=== PATIENT | female | born 1970 | race Caucasian/White ===

== ENCOUNTER 2018-04-04 21:19 | Emergency (ER) | payer OTHER ==
[~2018-04-04] VITALS: Ht 175.3 cm; Wt 65.8 kg
[~2018-04-04 21:19] MED LIST: BENTYL10 MG PO; BUDESONIDE EC3 MG PO; CARAFATE1 GM PO; CEPHALEXIN500 MG PO; COUMADIN5 MG PO; CYMBALTA20 MG PO; CYMBALTA30 MG PO; DICYCLOMINE HCL20 MG PO; ELIQUIS PO; FENTANYL1 EAC1 TD; FLOMAX0.4 MG PO; GABAPENTIN100 MG PO; GABAPENTIN400 MG PO; HUMALOG100 UNIT/1 SC; HUMALOG100 UNIT/3 SC; HUMALOG100 UNITS/ SC; HUMULIN R100 UNIT/2; HYDROXYZINE HCL25 MG PO; IMODIUM2 MG PO; LANTUS100 UNITS/ SC; LEVEMIR100 UNIT/1 SC; LEVEMIR100 UNIT/1 SQ; LEXAPRO10 MG PO; LYRICA50 MG PO; Linzess PO; Loratadine PO; MELOXICAM7.5 MG PO; METOCLOPRAMIDE10 MG PO; NATURAL FIBER283 G1 PO; NEXIUM40 MG PO; NORCO 7.5-3251 EACH PO; NOVOLOG100 UNIT/1 SQ; PANTOPRAZOLE SO20 MG PO; PANTOPRAZOLE SO40 MG PO; PENTASA500 MG PO; PEPCID20 MG PO; PHENERGAN25 MG/1 ML IV; PROMETHAZINE HC25 M1 PO; PROTONIX40 MG PO; RANITIDINE HCL300 M1 PO; REGLAN10 MG PO; REGLAN5 MG PO; REXULTI PO; SERTRALINE HCL50 MG PO; SUCRALFATE1 GM PO; TRAZODONE HCL50 MG PO; TUMS300 MG PO; ULTRAM 50MG50 MG PO; WELCHOL625 MG PO; XIFAXAN550 MG PO; ZOFRAN ODT4 MG PO; ZOFRAN8 MG PO
--- OUTSIDE RECORDS SUMMARY | 2018-04-04 21:22 | XMS REPORT ---
Author Author [facility] Address Unknown Phone Unavailable Care Team Providers Care Radio News Writer Name Role Phone MEL WRIGHT Unavailable Unavailable Problems This patient has no known problems. Allergies, Adverse Reactions, Alerts This patient has no known allergies or adverse reactions. Medications This patient has no known medications. Results Test Description Test Time Test Comments Text Results Atomic Results Result Comments CHEST SINGLE (PORTABLE) [place] [address] Patient Name: SERG MOYER MR #: [id number] : 1970 Age/Sex: 47/F Req #: [id number] [facility] Physician: MEL WRIGHT MD Ordered by: FRANDY PAK MD Report #: [id number] Location: [facility] Room/Bed: [place] [address] Procedure: [id number] DX/CHEST SINGLE (PORTABLE) Exam Date: 06/27/17 Exam Time: 0950 REPORT STATUS: Signed PROCEDURE: CHEST SINGLE (PORTABLE) COMPARISON: None. INDICATIONS: VOMITING, ABDOMEN PAIN FINDINGS: LUNGS: No consolidations or edema. PLEURA: No effusions or pneumothorax. HEART T MEDIASTINUM: The heart is within normal size-limits. BONES T SOFT TISSUES: No acute findings. CONCLUSION: No acute thoracic abnormality. Mani Oh D.O. Dictated by: Mani Oh D.O. on 06/27/2017 at 10:28 Electronically approved by: Mani Oh D.O. on 06/27/2017 at 10:28 Dictated By: MANI OH DO 1028 Transcribed By: PAPA on 06/27/17 1028 COPY TO: FRANDY PAK MD
--- OUTSIDE RECORDS SUMMARY | 2018-04-04 21:22 | XMS REPORT | Clinical Summary ---
Author Author [facility] Address Unknown Phone Unavailable Care Team Providers Care Wire Steward Name Role Phone KeysAshvin Mary PCP Allergies Active Allergy Reactions Severity Noted Date Comments Penicillins Rash Low 03/30/2016 Unknown reaction. Note: Patient was young and does not remember. Transcribed during cutover. Current Medications Prescription Sig. Disp. Refills Start End Date Status Date rivaroxaban (XARELTO) Take 20 mg by mouth every Active tablet evening. Active Problems Problem Noted Date Depression 05/03/2016 Nausea and vomiting 05/03/2016 Type 1 diabetes mellitus 05/03/2016 Diabetic ketoacidosis without coma associated with type 1 diabetes mellitus 03/31/2016 DVT (deep venous thrombosis) 03/31/2016 Celiac disease 03/31/2016 Hypomagnesemia 03/31/2016 Encounters Date Type Specialty Care Team Description 09/17/2017 Office Visit General Surgery Nicko Pagan MD Gastroparesis diabeticorum (Primary Dx) after 04/03/2017 Family History Medical History Relation Name Comments Diabetes Maternal DM Type I Grandfather Thyroid disease Mother Alive GI problems Neg Hx Liver disease Neg Hx Relation Name Status Comments Maternal Grandfather Mother Social History Tobacco Use Types Packs/Day Years Used Date Former Smoker 1 30 Comments: 1 pack per week for ~ 30 years Alcohol Use Drinks/Week oz/Week Comments No Sex Assigned at Date Recorded Not on file Last Filed Vital Signs Vital Sign Reading Time Taken Blood Pressure 107/70 09/17/2017 1:41 PM [employer]ACHINE Pulse 106 09/17/2017 1:41 PM [employer] Temperature 36.1 C (96.9 F) 09/17/2017 1:41 PM [employer] Respiratory Rate 18 09/17/2017 1:41 PM [employer] Oxygen Saturation 100% 09/17/2017 1:41 PM [employer] Inhaled Oxygen - - Concentration Weight 65.6 kg (144 lb 9.6 oz) 09/17/2017 1:41 PM [employer] Height 175.3 cm (5' 9") 09/17/2017 1:41 PM [employer] Body Mass Index 21.35 09/17/2017 1:41 PM [employer] Plan of Treatment Health Maintenance Due Date Last Done Comments DIABETIC FOOT EXAM 1981 DIABETIC RETINAL EYE EXAM 1981 URINE MICROALBUMIN 1981 CERVICAL CANCER SCREENING 02/14/1992 INFLUENZA VACCINE 06/10/2018 Results Not on fileafter 04/03/2017 Insurance Payer Benefit Subscriber ID Type Phone Address Plan / Group [employer] xxxxxxxxxxx HMO HMO/POS
[2018-04-04] MEDS ORDERED: INSULIN REGULAR, HUMAN 100 UNIT/1 ML 3ML VIAL SQ ONE (21:45)
[2018-04-04] MEDS ORDERED: INSULIN REGULAR, HUMAN 100 UNIT/1 ML 3ML VIAL IV ONE (21:45)
[2018-04-04] MEDS ORDERED: SODIUM CHLORIDE 0.9% 1000ML 1,000 ML IV ONE ×2 (21:45→22:30)
[2018-04-04] MEDS ORDERED: ONDANSETRON HCL 4 MG ORAL DISINTEGRATING TAB PO PRN (21:45)
[2018-04-04 21:50] LABS: BASOPHILS % 0.4 % (0.0-1.0); EOSINOPHILS # (AUTO) 0.3 (0.0-0.4); EOSINOPHILS % 3.7 % (0.0-6.0); HEMATOCRIT 39.4 % (34.2-44.1); LYMPHOCYTES # (AUTO) 1.9 (1.0-3.2); LYMPHOCYTES % 20.7 % (18.0-39.1); MEAN CORPUSCULAR HEMOGLOBIN 28.1 pg (28-32); MEAN CORPUSCULAR VOLUME 85.1 fL (81-99); MONOCYTES # (AUTO) 0.9 (0.2-0.8); MONOCYTES % 9.5 % (4.4-11.3); NEUTROPHILS % 65.5 % (38.7-80.0); PLATELET COUNT 223 x10e3/uL (140-360); RED BLOOD COUNT 4.63 x10e6/uL (3.6-5.1); RED CELL DISTRIBUTION WIDTH 14.3 % (11.7-14.4)
[2018-04-04 21:53] LABS: BILIRUBIN,URINE NEGATIVE (NEGATIVE); CLARITY,URINE CLEAR (CLEAR); COLOR,URINE STRAW (YELLOW); KETONES,URINE NEGATIVE (NEGATIVE); LEUKOCYTE ESTERASE ,URINE NEGATIVE (NEGATIVE); NITRITE,URINE NEGATIVE (NEGATIVE); PROTEIN,URINE DIPSTICK NEGATIVE (NEGATIVE); URINE UROBILINOGEN 0.2 mg/dL (0.2 - 1)
[2018-04-04 21:54] LABS: PREGNANCY TEST, URINE NEGATIVE (NEGATIVE)
[2018-04-04 22:04] LABS: BACTERIA,URINE MANY /HPF; EPITHELIAL CELLS,URINE MODERATE /LPF; WBC,URINE (MAN) 0-5 /HPF (0-5); YEAST,URINE FEW
[2018-04-04 22:14] LABS: ALBUMIN 3.7 g/dL (3.5-5.0); ALBUMIN/GLOBULIN RATIO 1.1 (0.8-2.0); ANION GAP 16.6 mmol/L (8-16); CALCIUM 8.5 mg/dL (8.4-10.2); CREATININE, SERUM 1.16 mg/dL (0.57-1.11); POTASSIUM 4.6 mmol/L (3.5-5.1)
[2018-04-05] MEDS ORDERED: DEXTROSE 50% SYRINGE 50 ML IV STA (00:17)
[2018-04-05] MEDS ORDERED: DEXTROSE 50% SYRINGE 50 ML IV ONE (00:18)
[2018-04-05 00:21] LABS: ANION GAP 13.4 mmol/L (8-16); BLOOD UREA NITROGEN 16 mg/dL (7-26); BUN/CREATININE RATIO 22 (6-25); CALCIUM 7.7 mg/dL (8.4-10.2); CARBON DIOXIDE 18 mmol/L (22-29); CHLORIDE 109 mmol/L (98-107); CREATININE, SERUM 0.72 mg/dL (0.57-1.11); EST GLOMERULAR FILTRATION RATE > 60 ML/MIN (60-); GLUCOSE 118 mg/dL (74-118)
[2018-04-05 00:24] LABS: POTASSIUM 3.4 mmol/L (3.5-5.1); SODIUM 137 mmol/L (136-145)
[2018-04-05] MEDS ORDERED: POTASSIUM CHLORIDE 20 MEQ TAB CR PO STA (00:31)
[2018-04-05 02:40] VITALS: BP 101/68
== END 2018-04-05 02:45 | disposition home or self-care (01) ==
LOC: ER 21:19
DX: E11.65 Type 2 diabetes mellitus with hyperglycemia (principal); K90.0 Celiac disease
CPT/HCPCS: 99283; J7030; J7799

== ENCOUNTER 2018-06-25 18:11 | Emergency (ER) | payer OTHER ==
[~2018-06-25] VITALS: Ht 175.3 cm; Wt 65.8 kg
[2018-06-25] MEDS ORDERED: INSULIN REGULAR, HUMAN 100 UNIT/1 ML 3ML VIAL ONE (19:23)
[2018-06-25] MEDS ORDERED: INSULIN REGULAR, HUMAN 100 UNIT/1 ML 3ML VIAL SQ ONE (19:30)
[2018-06-25] MEDS ORDERED: SODIUM CHLORIDE 0.9% 1000ML 1,000 ML IV ONE (19:30)
[2018-06-25 20:36] LABS: CLARITY,URINE CLEAR (CLEAR); COLOR,URINE STRAW (YELLOW); LEUKOCYTE ESTERASE ,URINE NEGATIVE (NEGATIVE); NITRITE,URINE NEGATIVE (NEGATIVE); PROTEIN,URINE DIPSTICK NEGATIVE (NEGATIVE)
[2018-06-25 20:37] LABS: BILIRUBIN,URINE NEGATIVE (NEGATIVE); KETONES,URINE NEGATIVE (NEGATIVE); PREGNANCY TEST, URINE NEGATIVE (NEGATIVE); URINE UROBILINOGEN 0.2 mg/dL (0.2 - 1)
[2018-06-25 21:39] LABS: EPITHELIAL CELLS,URINE MANY /LPF
[2018-06-25 21:40] LABS: WBC,URINE (MAN) 0-5 /HPF (0-5)
[2018-06-25 21:41] LABS: RBC,URINE 0-5 /HPF (0-5); YEAST,URINE MANY
[2018-06-25 22:16] LABS: BASOPHILS % 0.5 % (0.0-1.0); EOSINOPHILS # (AUTO) 0.2 (0.0-0.4); EOSINOPHILS % 1.9 % (0.0-6.0); HEMATOCRIT 36.6 % (34.2-44.1); HEMOGLOBIN 11.9 g/dL (12.0-16.0); LYMPHOCYTES % 22.2 % (18.0-39.1); MEAN CORPUSCULAR HEMOGLOBIN 27.2 pg (28-32); MEAN CORPUSCULAR HGB CONC 32.5 g/dL (31-35); MEAN CORPUSCULAR VOLUME 83.8 fL (81-99); MONOCYTES # (AUTO) 0.8 (0.2-0.8); MONOCYTES % 8.6 % (4.4-11.3); NEUTROPHILS # (AUTO) 5.9 (2.1-6.9); NEUTROPHILS % 66.6 % (38.7-80.0); PLATELET COUNT 293 x10e3/uL (140-360); RED BLOOD COUNT 4.37 x10e6/uL (3.6-5.1); RED CELL DISTRIBUTION WIDTH 13.2 % (11.7-14.4)
[2018-06-25 22:35] LABS: ALBUMIN 3.7 g/dL (3.5-5.0); ALBUMIN/GLOBULIN RATIO 0.9 (0.8-2.0); ANION GAP 17.5 mmol/L (8-16); CREATININE, SERUM 1.04 mg/dL (0.57-1.11); POTASSIUM 3.5 mmol/L (3.5-5.1)
[2018-06-25 22:37] LABS: CALCIUM 9.3 mg/dL (8.4-10.2)
== END 2018-06-25 23:53 | disposition home or self-care (01) ==
LOC: ER 18:11
DX: E11.65 Type 2 diabetes mellitus with hyperglycemia (principal); L29.9 Pruritus, unspecified; K90.0 Celiac disease; F17.210 Nicotine dependence, cigarettes, uncomplicated
CPT/HCPCS: 36415; 80053; 81001; 81025; 82948; 85025; 99283; J7030

== ENCOUNTER 2019-06-09 23:28 | Inpatient (IN) | payer OTHER ==
[~2019-06-09] VITALS: Ht 175.3 cm; Wt 88.9 kg
--- OUTSIDE RECORDS SUMMARY | 2019-06-09 23:43 | XMS REPORT | Clinical Summary ---
Author Author [facility] Organization [facility] Address Unknown Phone Unavailable Care Team Providers Care Marine Tower Operator Name Role Phone KeysMahesh Locka Simi PCP Allergies Comments Active Allergy Reactions Severity Noted Date Unknown reaction. Note: Patient was young and does not remember. Transcribed during cutover. Penicillins Rash Low 03/30/2016 Medications End Date Status Medication Sig Dispensed Refills Start Date Active rivaroxaban (XARELTO) Take 20 mg by 0 tablet mouth every evening. Active Problems Problem Noted Date Depression 05/03/2016 Nausea and vomiting 05/03/2016 Type 1 diabetes mellitus 05/03/2016 Diabetic ketoacidosis without coma associated with type 1 diabetes mellitus 03/31/2016 DVT (deep venous thrombosis) 03/31/2016 Celiac disease 03/31/2016 Hypomagnesemia 03/31/2016 Family History Medical History Relation Name Comments Diabetes Maternal DM Type I Grandfather Thyroid disease Mother Alive GI problems Neg Hx Liver disease Neg Hx Relation Name Status Comments Maternal Grandfather Mother Social History Date Tobacco Use Types Packs/Day Years Used Former Smoker 1 30 Comments: 1 pack per week for ~ 30 years Alcohol Use Drinks/Week oz/Week Comments No Sex Assigned at Date Recorded Not on file Industry Job Start Date Occupation Not on file Not on file Not on file Travel End Travel History Travel Start No recent travel history available. Last Filed Vital Signs Not on file Plan of Treatment Health Maintenance Due Date Last Done Comments DIABETIC RETINAL EYE EXAM 1971 DIABETIC FOOT EXAM 1981 URINE MICROALBUMIN 1981 INFLUENZA VACCINE 06/10/2019 Results Not on fileafter 06/08/2018 Insurance Type Payer Benefit Subscriber ID Effective Phone Address Plan / Dates Group HMO [employer] C[employer] xxxxxxxxxxx 2013- HMO/POS Present Advance Directives Patient has advance care planning documents, and code status on file. For more i nformation, please contact: Jorje Stacy [address] [place] [address] Date Inactivated Comments Code Status Date Activated 05/10/2016 8:27 PM Full Code 05/02/2016 10:29 PM Code Status decision reached by: Patient 04/07/2016 4:11 PM Full Code 04/01/2016 10:49 AM Code Status decision reached by: Patient
--- OUTSIDE RECORDS SUMMARY | 2019-06-09 23:44 | XMS REPORT | Continuity of Care Document ---
Author Author [employer] Address Unknown Phone Unavailable Care Team Providers Care Operating System Designer Name Role Phone [employer] Unavailable Unavailable Problems Problem Status Onset Date Classification Date Reported Comments Source DVT Active 02/19/2016 Problem 06/26/2018 [facility] Diabetes Active 02/19/2016 Problem 06/26/2018 [facility] Abdominal pain Active 12/24/2015 Problem 06/26/2018 [facility] DKA Active 03/18/2015 Problem 06/26/2018 [facility] Elevated blood sugar level Active Problem 06/26/2018 [facility] Gastroparesis Active Problem 06/26/2018 [facility] Gastroparesis diabeticorum Active Problem 06/26/2018 [facility] Vomiting Active Problem 06/26/2018 [facility] Medications Medication Details Route Status Patient Instructions Ordering Provider Order Date Source Esomeprazole Magnesium (Nexium) 40 Mg Capsule.dr, 40 Mg Oral Bedtime Active 06/27/2017 [facility] Hydroxyzine Hcl 25 Mg Tablet, 25 Mg Oral Every 8 Hours as needed for Anxiety Active 06/27/2017 [facility] Insulin Lispro (Humalog) 100 Unit/1 Ml Cartridge, 4 Units Subcutaneously Before Meals And At Bedtime Active 06/27/2017 [facility] Metoclopramide Hcl (Reglan) 5 Mg Tablet, 5 Mg Oral Twice A Day Active 06/27/2017 [facility] Metoclopramide Hcl (Reglan) 10 Mg Tablet, 10 Mg Oral Three Times A Day as needed for Nausea Active 06/27/2017 [facility] Pantoprazole Sodium (Protonix) 40 Mg Tablet., 40 Mg Oral Daily Active 06/27/2017 [facility] Rexulti , 1 Mg Oral Daily Active 06/27/2017 [facility] Trazodone Hcl 50 Mg Tablet, 100 Mg Oral Bedtime Active 06/27/2017 [facility] Cephalexin 500 Mg Capsule, 500 Mg Oral Daily Active 06/04/2017 [facility] Dicyclomine Hcl 20 Mg Tablet, 20 Mg Oral Four Times Daily Active 06/04/2017 [facility] Hydrocodone Bit/Acetaminophen (Gays 7.5-325 Tablet) 1 Each Tablet, 1 Ea Oral Twice A Day Active 06/04/2017 [facility] Promethazine Hcl (Phenergan) 25 Mg/1 Ml Ampul, 12.5 Mg Intraven Every 6 Hours for Nausea Active 06/04/2017 [facility] Rexulti , 1 Mg Oral Daily Active 06/04/2017 [facility] Sertraline Hcl 50 Mg Tablet, 50 Mg Oral Bedtime Active 06/04/2017 [facility] Sucralfate 1 Gm Tablet, 1 Gm Oral Four Times Daily Active 06/04/2017 [facility] Escitalopram Oxalate (Lexapro) 10 Mg Tablet, 10 Mg Oral Daily Active 05/04/2017 [facility] Calcium Carbonate (Tums) 300 Mg Tab.chew, 500 Mg Oral Twice A Day Active 06/25/2016 [facility] Colesevelam Hcl (Welchol) 625 Mg Tablet, 1875 Mg Oral Twice A Day Active 06/25/2016 [facility] Duloxetine Hcl (Cymbalta) 30 Mg Capsule.dr, 30 Mg Oral Daily Active 06/25/2016 [facility] Famotidine (Pepcid) 20 Mg Tablet, 20 Mg Oral Twice A Day Active 06/25/2016 [facility] Fentanyl 1 Each Patch.td72, 25 Mcg Transderm Q72hr Active 06/25/2016 [facility] Insulin Regular, Human (Humulin R) 100 Unit/1 Ml Vial, Active 06/25/2016 [facility] Loperamide Hcl (Imodium*) 2 Mg Cap, 2 Mg Oral As Needed for Diarrhea Active 06/25/2016 [facility] Meloxicam 7.5 Mg Tablet, 7.5 Mg Oral Daily Active 06/25/2016 [facility] Ondansetron Hcl (Zofran) 8 Mg Tablet, 4 Mg Oral Every 4 Hours as needed for Nausea And Vomiting Active 06/25/2016 [facility] Psyllium Husk/Aspartame (Natural Fiber Laxative Powder) 283 Gm Powder, 2 Tsp Oral Twice A Day Active 06/25/2016 [facility] Warfarin Sodium (Coumadin) 5 Mg Tablet, 5 Mg Oral Daily At 1700 Active Diomedes 02/23/2016 [facility] Budesonide (Budesonide Ec) 3 Mg Capdr...er, 3 Mg Oral Three Times A Day Active 02/19/2016 [facility] Dicyclomine Hcl 20 Mg Tablet, 20 Mg Oral Three Times A Day Active 02/19/2016 [facility] Fentanyl 1 Each Patch.td72, 25 Mcg Transderm Active 02/19/2016 [facility] Gabapentin 400 Mg Capsule, 400 Mg Oral Every 8 Hours Active 02/19/2016 [facility] Insulin Detemir (Levemir) 100 Unit/1 Ml Vial, 10 Unit Subcutaneously Use As Directed Active 02/19/2016 [facility] Insulin Human Lispro (Humalog) 100 Units/Ml Ml, 5 Unit Subcutaneously Three Times Daily With Meals Active 02/19/2016 [facility] Linzess , 145 Mcg Oral Daily Active 02/19/2016 [facility] Mesalamine (Pentasa) 500 Mg Capcr, 1000 Mg Oral Four Times Daily Active 02/19/2016 [facility] Metoclopramide Hcl 10 Mg Tablet, 10 Mg Oral Four Times Daily Active 02/19/2016 [facility] Pantoprazole Sodium 20 Mg Tablet.dr, 40 Mg Oral Daily Active 02/19/2016 [facility] Promethazine Hcl 25 Mg Tablet, 25 Mg Oral Every 6 Hours for Nausea And Vomiting Active 02/19/2016 [facility] Ranitidine Hcl 300 Mg Capsule, 30 Mg Oral Bedtime Active 02/19/2016 [facility] Rifaximin (Xifaxan) 550 Mg Tablet, 550 Mg Oral Twice A Day Active 02/19/2016 [facility] Calcium Carbonate (Tums) 300 Mg Tab.chew, 500 Mg Oral Three Times A Day Active 01/30/2016 [facility] Dicyclomine Hcl (Bentyl) 10 Mg Capsule, 20 Mg Oral Active 01/30/2016 [facility] Duloxetine Hcl (Cymbalta) 20 Mg Capcr, 60 Mg Oral Daily Active 01/30/2016 [facility] Gabapentin 100 Mg Capsule, 400 Mg Oral Every 8 Hours Active 01/30/2016 [facility] Pregabalin (Lyrica) 50 Mg Cap, 50 Mg Oral Three Times A Day Active 01/30/2016 [facility] Rifaximin (Xifaxan) 550 Mg Tablet, 550 Mg Oral Twice A Day Active 01/30/2016 [facility] Insulin Aspart (Novolog) 100 Unit/1 Ml Cartridge, 8-10 Unit Sub-Q Before Meals Active [facility] 12/04/2015 [facility] Insulin Detemir (Levemir) 100 Unit/1 Ml Vial, 30 Units Sub-Q Bedtime Active [facility] 12/04/2015 [facility] Loratadine 10 Mg Tab, 10 Mg Oral Daily Active [facility] 12/04/2015 [facility] Pantoprazole Sodium (Protonix) 40 Mg Suspdr.pkt, 40 Mg Oral Daily Active [facility] 12/04/2015 [facility] Sucralfate (Carafate) 1 Gm Tablet, 1 Gm Oral Before Meals And At Bedtime Active [facility] 12/04/2015 [facility] Tamsulosin Hcl (Flomax*) 0.4 Mg Cap, 0.4 Mg Oral Bedtime Active [facility] 12/04/2015 [facility] Eliquis Twice A Day Active [facility] Insulin Glargine (Lantus) 100 Units/Ml Ml Bedtime Active [facility] Insulin Lispro (Humalog) 100 Unit/1 Ml Insuln.pen Before Meals And At Bedtime as needed for Blood Sugar Active [facility] Ondansetron (Zofran Odt) 4 Mg Tab.rapdis Every 6 Hours Active [facility] Promethazine Hcl 25 Mg Tablet Every 6 Hours as needed for Nausea And Vomiting Active [facility] Tramadol Hcl (Ultram 50MG*) 50 Mg Tab Every 6 Hours Active [facility] Allergies, Adverse Reactions, Alerts Substance Category Reaction Severity Reaction type Status Date Reported Comments Source Penicillin Unknown Allergy to Substance Active 06/25/2018 [facility] Morphine Unknown Allergy to Substance Active 06/25/2018 [facility] Immunizations No Data Provided for This Section Results Order Name Results Value Reference Range Date Interpretation Comments Source Capillary blood glucose measurement by glucometer (mass/volume) Capillary blood glucose measurement by glucometer (mass/volume) 267 70 - 120 06/25/2018 [facility] Automated blood basophil count (count/volume) Automated blood basophil count (count/volume) 0.0 0.0 - 0.1 06/25/2018 [facility] Automated blood basophil count as percentage of total leukocytes Automated blood basophil count as percentage of total leukocytes 0.5 0.0 - 1.0 06/25/2018 [facility] Automated blood eosinophil count Automated blood eosinophil count 0.2 0.0 - 0.4 06/25/2018 [facility] Automated blood eosinophil count as percentage of total leukocytes Automated blood eosinophil count as percentage of total leukocytes 1.9 0.0 - 6.0 06/25/2018 [facility] Automated blood hematocrit (volume fraction) Automated blood hematocrit (volume fraction) 36.6 34.2 - 44.1 06/25/2018 [facility] Automated blood lymphocyte count as percentage ot total leukocytes Automated blood lymphocyte count as percentage ot total leukocytes 22.2 18.0 - 39.1 06/25/2018 [facility] Automated blood monocyte count as percentage of total leukocytes Automated blood monocyte count as percentage of total leukocytes 8.6 4.4 - 11.3 06/25/2018 [facility] Automated blood neutrophil count Automated blood neutrophil count 5.9 2.1 - 6.9 06/25/2018 [facility] Automated blood platelet count (count/volume) Automated blood platelet count (count/volume) 293 140 - 360 06/25/2018 [facility] Automated blood segmented neutrophil count as percentage of total leukocytes Automated blood segmented neutrophil count as percentage of total leukocytes 66.6 38.7 - 80.0 06/25/2018 [facility] Automated erythrocyte mean corpuscular hemoglobin (mass per erythrocyte) Automated erythrocyte mean corpuscular hemoglobin (mass per erythrocyte) 27.2 28 - 32 06/25/2018 [facility] Automated erythrocyte mean corpuscular hemoglobin concentration measurement (mass/volume) Automated erythrocyte mean corpuscular hemoglobin concentration measurement (mass/volume) 32.5 31 - 35 06/25/2018 [facility] Automated erythrocyte mean corpuscular volume Automated erythrocyte mean corpuscular volume 83.8 81 - 99 06/25/2018 [facility] Blood erythrocytes automated count (number/volume) Blood erythrocytes automated count (number/volume) 4.37 3.6 - 5.1 06/25/2018 [facility] Blood hemoglobin measurement (moles/volume) Blood hemoglobin measurement (moles/volume) 11.9 12.0 - 16.0 06/25/2018 [facility] Blood leukocytes automated count (number/volume) Blood leukocytes automated count (number/volume) 8.80 4.8 - 10.8 06/25/2018 [facility] Blood lymphocytes count (number/volume) Blood lymphocytes count (number/volume) 2.0 1.0 - 3.2 06/25/2018 [facility] Blood monocytes automated count (number/volume) Blood monocytes automated count (number/volume) 0.8 0.2 - 0.8 06/25/2018 [facility] Estimated glomerular filtration rate (GFR) determination Estimated glomerular filtration rate (GFR) determination 57 60 06/25/2018 [facility] Glucose measurement Glucose measurement 371 74 - 118 06/25/2018 [facility] Plasma globulin measurement (mass/volume) Plasma globulin measurement (mass/volume) 4.2 2.3 - 3.5 06/25/2018 [facility] Serum or plasma alanine aminotransferase measurement (enzymatic activity/volume) Serum or plasma alanine aminotransferase measurement (enzymatic activity/volume) 31 0 - 55 06/25/2018 [facility] Serum or plasma albumin measurement (mass/volume) Serum or plasma albumin measurement (mass/volume) 3.7 3.5 - 5.0 06/25/2018 [facility] Serum or plasma albumin/globulin mass ratio Serum or plasma albumin/globulin mass ratio 0.9 0.8 - 2.0 06/25/2018 [facility] Serum or plasma alkaline phosphatase measurement (enzymatic activity/volume) Serum or plasma alkaline phosphatase measurement (enzymatic activity/volume) 111 40 - 150 06/25/2018 [facility] Serum or plasma anion gap Serum or plasma anion gap 17.5 8 - 16 06/25/2018 [facility] Serum or plasma calcium measurement (mass/volume) Serum or plasma calcium measurement (mass/volume) 9.3 8.4 - 10.2 06/25/2018 [facility] Serum or plasma carbon dioxide, total measurement (moles/volume) Serum or plasma carbon dioxide, total measurement (moles/volume) 21 22 - 29 06/25/2018 [facility] Serum or plasma chloride measurement (moles/volume) Serum or plasma chloride measurement (moles/volume) 99 98 - 107 06/25/2018 [facility] Serum or plasma creatinine measurement (mass/volume) Serum or plasma creatinine measurement (mass/volume) 1.04 0.57 - 1.11 06/25/2018 [facility] Serum or plasma potassium measurement (moles/volume) Serum or plasma potassium measurement (moles/volume) 3.5 3.5 - 5.1 06/25/2018 [facility] Serum or plasma protein measurement (mass/volume) Serum or plasma protein measurement (mass/volume) 7.9 6.5 - 8.1 06/25/2018 [facility] Serum or plasma sodium measurement (moles/volume) Serum or plasma sodium measurement (moles/volume) 134 136 - 145 06/25/2018 [facility] Serum or plasma total bilirubin measurement (mass/volume) Serum or plasma total bilirubin measurement (mass/volume) 0.4 0.2 - 1.2 06/25/2018 [facility] Serum or plasma urea nitrogen measurement (mass/volume) Serum or plasma urea nitrogen measurement (mass/volume) 13 7 - 26 06/25/2018 [facility] Serum or plasma urea nitrogen/creatinine mass ratio Serum or plasma urea nitrogen/creatinine mass ratio 13 6 - 25 06/25/2018 [facility] Red Cell Distribution Width 13.2 11.7 - 14.4 06/25/2018 [facility] IM GRANULOCYTES % 0.2 0.0 - 1.0 06/25/2018 [facility] Absolute Immature Granulocyte (auto 0.02 0 - 0.1 06/25/2018 [facility] Aspartate Amino Transf (AST/SGOT) 23 5 - 34 06/25/2018 [facility] Automated urine sediment leukocyte count by microscopy (number/high power field) Automated urine sediment leukocyte count by microscopy (number/high power field) <5 0 - 5 06/25/2018 [facility] Bacteria detection in urine sediment by light microscopy Bacteria detection in urine sediment by light microscopy NONE NONE 06/25/2018 [facility] Epithelial cells detection in urine sediment by light microscopy Epithelial cells detection in urine sediment by light microscopy MANY NONE 06/25/2018 [facility] Erythrocytes detection in urine sediment by light microscopy Erythrocytes detection in urine sediment by light microscopy <5 0 - 5 06/25/2018 [facility] Specific gravity of Urine by Test strip Specific gravity of Urine by Test strip 1.005 1.010 - 1.025 06/25/2018 [facility] Urine clarity Urine clarity CLEAR CLEAR 06/25/2018 [facility] Urine color determination Urine color determination STRAW YELLOW 06/25/2018 [facility] Urine erythrocytes detection Urine erythrocytes detection NEGATIVE NEGATIVE 06/25/2018 [facility] Urine glucose detection Urine glucose detection 3+ NEGATIVE 06/25/2018 [facility] Urine human chorionic gonadotropin (hCG) detection Urine human chorionic gonadotropin (hCG) detection NEGATIVE NEGATIVE 06/25/2018 [facility] Urine ketones detection by automated test strip Urine ketones detection by automated test strip NEGATIVE NEGATIVE 06/25/2018 [facility] Urine leukocyte esterase detection by dipstick Urine leukocyte esterase detection by dipstick NEGATIVE NEGATIVE 06/25/2018 [facility] Urine nitrite detection Urine nitrite detection NEGATIVE NEGATIVE 06/25/2018 [facility] Urine pH measurement by automated test strip Urine pH measurement by automated test strip 6 5 - 7 06/25/2018 [facility] Urine protein measurement by test strip (mass/volume) Urine protein measurement by test strip (mass/volume) NEGATIVE NEGATIVE 06/25/2018 [facility] Urine total bilirubin measurement (mass/volume) Urine total bilirubin measurement (mass/volume) NEGATIVE NEGATIVE 06/25/2018 [facility] Urine urobilinogen measurement by test strip (mass/volume) Urine urobilinogen measurement by test strip (mass/volume) 0.2 0.2 - 1 06/25/2018 [facility] Yeast detection in urine sediment by light microscopy Yeast detection in urine sediment by light microscopy MANY NONE 06/25/2018 [facility] Pathology Reports No Data Provided for This Section Diagnostic Reports No Data Provided for This Section Consultation Notes No Data Provided for This Section Discharge Summaries No Data Provided for This Section History and Physicals No Data Provided for This Section Vital Signs No Data Provided for This Section Encounters Location Location Details Encounter Type Encounter Number Reason For Visit Attending Provider ADM Date DC Date Status Source Departed Emergency Room [id number] THI LUCERO MD 04/04/2018 04/05/2018 [facility] Departed Emergency Room [id number] TEREZA TAM MD 06/25/2018 06/25/2018 [facility] Procedures No Data Provided for This Section Assessment and Plan No Data Provided for This Section Plan of Care Plan of Care Date Source Discharge Date 06/25/18 11:53pm Disposition HOME, SELF-CARE Condition at Discharge Stable Instructions/Education Provided Type 1 Diabetes Hyperglycemia Hypoglycemia Forms Provided Work/School Excuse Prescriptions See Medication Section 06/25/2018 [facility] Social History Social History Date Source Social History Problem Response Recorded Date/Time Onset Date Status Hx Psychiatric Problems Y - DEPRESSION, ANXIETY 06/27/2017 11:21am Not Applicable Not Applicable Hx Eating Disorder No 06/27/2017 11:21am Not Applicable Not Applicable Hx Substance Use Disorder No 06/27/2017 11:21am Not Applicable Not Applicable Hx Depression Yes 06/27/2017 11:21am Not Applicable Not Applicable Hx Alcohol Use No 06/27/2017 11:21am Not Applicable Not Applicable Hx Substance Use Treatment No 06/27/2017 11:21am Not Applicable Not Applicable Hx Physical Abuse No 06/27/2017 11:21am Not Applicable Not Applicable Smoking Status Start Date Stop Date Current every day smoker 06/25/2018 [facility] Family History No Data Provided for This Section Advance Directives Order Name Results Value Date Source Advance Directives Advance Directives Directive Response Recorded Date/Time Does the patient have an advance directive? No 06/27/17 11:21am If yes, is advance directive on file with [facility]? No 06/27/17 11:21am If not on file with [facility] will patient provide a copy? No 06/27/17 11:21am 06/25/2018 [facility] Functional Status No Data Provided for This Section
[2019-06-10] VITALS (24 sets, daily range): BP systolic 85–126; BP diastolic 59–101
[2019-06-10] MEDS ORDERED: HYDRALAZINE HCL 20 MG/ML VIAL IV PRN
[2019-06-10] MEDS ORDERED: MORPHINE SULFATE 2 MG/ML SYR 1ML IV PRN
--- NOTE | 2019-06-10 00:05 | NUR ---
RECEIVED BY AMBULANCE DIRECT ADMIT FROM [facility]
--- NOTE | 2019-06-10 00:18 | NUR ---
SPOKE WITH DR BLANDON REGARDING PATIENT PAIN, MORPHINE ORDERED AND PATIENT IS ALLERGIC, ORDERS CHANGED TO NORCO PRN
--- NOTE | 2019-06-10 00:22 | NUR ---
SPOKE WITH DR DRISCOLL, NEW ORDERS RECEIVED
[2019-06-10] MEDS: ONDANSETRON HCL INJ 2MG/ML 2ML 2 MG/ML VIAL IV PRN ×3 (00:25→22:59)
[2019-06-10] MEDS: HYDROCODONE/APAP 5MG-325MG TAB PO PRN ×3 (00:34→21:06)
[2019-06-10] MEDS: SODIUM CHLORIDE 0.9% 1000ML 1,000 ML IV SCH ×3 (00:34→17:36)
[2019-06-10] MEDS: INSULIN REGULAR IV SCH ×6 (00:35→09:10)
[2019-06-10] MEDS: HUMAN IV SCH ×6 (00:35→09:10)
[2019-06-10] MEDS: SODIUM CHLORIDE 0.45% IV SCH ×6 (00:35→09:10)
[2019-06-10] MEDS: [UNRECOGNIZED DRUG - OTHER] IV SCH ×6 (00:35→09:10)
[2019-06-10] MEDS ORDERED: TRESIBA SQ (00:52)
[2019-06-10] MEDS ORDERED: HYDROXYZINE HCL25 MG PO (00:52)
--- NOTE | 2019-06-10 02:19 | NUR ---
INSULIN GTT DECREASED TO 3 U/HR PER PROTOCOL
[2019-06-10] MEDS ORDERED: PROMETHAZINE HCL (IM) 25 MG/ML VIAL IM PRN (03:45)
[2019-06-10] MEDS ORDERED: SODIUM CHLORIDE 0.9% 50ML 50 ML ONE (03:56)
[2019-06-10] MEDS ORDERED: PROMETHAZINE 25MG/ NS 50ML (IV) IV PRN (04:00)
--- NOTE | 2019-06-10 04:00 | NUR ---
SPOKE WITH DR BLANDON REGARDING PT CONTINUED C/O NAUSEA AND PAIN. REPORTED SYSTOLIC BP CONSISTENTLY BELOW 100 AND SOMETIMES BELOW 90. STATES UNABLE TO GIVE IV PAIN MEDICATIONS BUT ORDERS RECEIVED FOR IV PHENERGAN
--- NOTE | 2019-06-10 05:01 | NUR ---
PATIENT HAS BEEN LYING QUIETLY WITH EYES CLOSED SINCE GIVING PHENERGAN UNTIL SUBGRADE TESTER CAME TO DRAW AM LABS. PATIENT REQUESTS THAT BP BE TAKEN ON ANKLE INSTEAD. B/P 104/71
[2019-06-10 05:40] LABS: ANION GAP 17.3 mmol/L (8-16); CALCIUM 8.8 mg/dL (8.4-10.2); CREATININE, SERUM 1.3 mg/dL (0.57-1.11); POTASSIUM 4.3 mmol/L (3.5-5.1)
[2019-06-10] MEDS: DEXTROSE 50% SYRINGE 50 ML IV PRN (08:15)
--- NOTE | 2019-06-10 11:23 | NUR ---
patient c/o pain to legs, back and abdomen this morning. I offered norco that was ordered. pt refused norco, stating it did not work last night. patient asked me to contact the physcian to get dilaudid for her pain. pt is vomiting, laying in bed calmly. I asked patient if she takes pain medication at home, she stated she takes tramadol as needed for pain. patient did not want to take norco at all to attempt to alleviate any pain. I notified Dr. Barriga who needs to assess her before giving anything stronger. bp94/62, hr84, rr 14 sat 98%room air. new orders received from .
[2019-06-10] MEDS: ACETAMINOPHEN 325 MG TAB PO PRN (11:42)
[2019-06-10] MEDS ORDERED: INSULIN REGULAR, HUMAN 3ML VL 100 UNIT in SODIUM CHLORIDE 0.45% 100 ML 100 ML IV SCH ×2 (14:00)
[2019-06-10 14:50] LABS: AMPHETAMINES SCREEN,URINE NEGATIVE (NEGATIVE); BENZODIAZEPINES SCREEN,URINE NEGATIVE (NEGATIVE); PHENCYCLIDINE SCREEN,URINE NEGATIVE (NEGATIVE)
[2019-06-10 15:16] LABS: FREE T4 (FREE THYROXINE) 0.88 ng/dL (0.8-1.8); THYROID STIMULATING HORMONE 1.911 uIU/mL (0.350-4.940)
[2019-06-10] MEDS: TRAMADOL HCL 50 MG TAB PO SCH (19:30)
[2019-06-10] MEDS ORDERED: INSULIN GLARGINE 100 UNITS/ML VIAL SC SCH (21:00)
[2019-06-10] MEDS ORDERED: PROMETHAZINE 25MG/SOD CHL 0.9% 50 ML IV PRN (21:00)
[2019-06-10] MEDS: INSULIN GLARGINE 100 UNITS/ML VIAL SQ SCH (21:06)
--- NOTE | 2019-06-10 21:52 | Consultation ---
DATE OF CONSULTATION: 06/10/2019 Endocrine Consultation The patient of Dr. Barriga. Thank you very much for referring this patient. HISTORY OF PRESENT ILLNESS: This is a 49-year-old white female, who is known to me from her previous hospital admissions. The patient has a longstanding history of type 1 diabetes mellitus for almost 7 years. She takes insulin about 20 to 25 units of Tresiba at bedtime and 10 to 15 of Humalog with each meal. She also has multiple complications related to diabetes including gastroparesis and has had chronic pain. She has had several hospital admissions in the past. On physical examination today, she also takes medications for anxiety. PHYSICAL EXAMINATION: GENERAL: Today, the patient is alert, awake, little bit apprehensive. She is complaining of constant pain in her lower extremities and pain in the abdomen. VITAL SIGNS: Her heart rate is around 78, blood pressure is 130/80 mmHg. HEENT: Essentially unremarkable. Thyroid is palpable. Clinically, she is near euthyroid. CHEST: Bilateral vesicular breathing. She has bilateral bronchospasm. CARDIAC: First and second heart sound. There is no 3rd or 4th heart sound with the systolic grade 2/6. EXTREMITIES: The patient has tenderness to the epigastric area and also evidence of diabetic sensory neuropathy in both lower extremities. LABORATORY DATA: At the time of admission, her blood sugar was 379 and anion gap was around 17.3. CLINICAL IMPRESSION: Diabetes mellitus type 1, uncontrolled with complication of diabetic ketoacidosis, gastroparesis, chronic pain, and anxiety. PLAN: The plan at this time is to start from the p.o. feedings, adjust insulin drip settings. We will also do a hemoglobin A1c and thyroid function tests. Thank you for referring this patient. I will be following this patient with you. MD HERBERTH Posada/KAREEM /[id number] HEATHER
[2019-06-10] MEDS: HYDROXYZINE HCL 25 MG TAB PO PRN (22:59)
[2019-06-11] VITALS (13 sets, daily range): BP systolic 98–131; BP diastolic 66–91
--- NOTE | 2019-06-11 00:17 | History and Physical ---
CHIEF COMPLAINT: Abdominal pain, nausea, vomiting, found to be in diabetic ketoacidosis. HISTORY OF PRESENT ILLNESS: This is a 49-year-old female, very noncompliant with her medical care, which she endorses, who has a history of diabetes and underlying anxiety, presents to the ED with complaints of abdominal pain ongoing for the last several days prior to arrival to the hospital. The patient reports abdominal pain, nausea, vomiting, and dehydration. She noticed that her sugars were extremely elevated at home. She is closely followed up as an outpatient with her primary care physician which she endorses. She also reports that she is very noncompliant with her insulin. She states that she has been under a lot of stress and has not been able to take her insulin appropriately. While here, the patient was found to be in diabetic ketoacidosis, was admitted, started on DKA protocol in the ICU. The patient is seen and evaluated at bedside on the medical floor in the ICU. She is currently doing well with no other complaints at this time. REVIEW OF SYSTEMS: Pertinent positives: Abdominal pain, nausea, vomiting, decreased oral intake and dehydration. Pertinent negatives: Denies any chest pain, palpitation, dysuria, hematuria, frequency, urgency, lightheadedness, dizziness, cough, congestion, fever, or any other complaints. The rest of the 14-point review of systems have been reviewed with the patient and are negative. ALLERGIES: PENICILLIN WITH MORPHINE. MEDICATIONS: She takes hydroxyzine 25 mg p.r.n. daily for anxiety, Lantus 20 units at bedtime, tramadol for pain. She takes Tresiba 20 units subcu at bedtime, also takes premeal insulin, promethazine for nausea and vomiting, and Zofran as well. PAST MEDICAL HISTORY: 1. Type 2 diabetes, uncontrolled. 2. History of anxiety. PAST SURGICAL HISTORY: Reports none. FAMILY HISTORY: Hypertension and diabetes. SOCIAL HISTORY: No drugs. No alcohol. Does not smoke. Good social support. She is . PHYSICAL EXAMINATION: VITAL SIGNS: Temperature 97.5, pulse 91, respiratory rate is 18, blood pressure is 118/101 and pulse ox 100% on room air. LABORATORY DATA: White count was not performed. Sodium is 134, potassium 4.3, chloride is 108, bicarbonate is 13, anion gap of 17, BUN 20, creatinine is 1.3, glucose is 124 now, A1c is greater than 15, calcium was 8.8, TSH is 1.9. Toxicology screen shows urine drug screen positive for opioids. Urinalysis was negative. MICROBIOLOGY: None. IMAGING STUDIES: None. PHYSICAL EXAMINATION: GENERAL: Not in acute distress. Alert and oriented x3, cooperative on examination. HEENT: Head is normocephalic and atraumatic. Eyes; pupils are equal, round, and reactive to light bilaterally. Extraocular movements are intact bilaterally. NECK: Supple. Good range of motion. Throat, no evidence of erythema or exudates in the posterior pharynx. Has poor dentition. PULMONARY: Clear to auscultation bilaterally. No wheezing, no rales, no rhonchi, no crackles appreciated. CARDIOVASCULAR: Positive S1, S2. No murmurs, rubs, or gallops appreciated. ABDOMEN: Soft, nondistended, and nontender to palpation. Bowel sounds present. MUSCULOSKELETAL: Strength is 5/5 throughout. No evidence of any muscles deficits on examination. No weakness appreciated. NEUROLOGICAL: Cranial nerves II through XII grossly intact. No evidence of any neurological deficits on exam. SKIN: Intact. Warm to touch. Good cap refill. PSYCHIATRIC: Normal affect and mood. EXTREMITIES: No edema. Good range of motion throughout. IMPRESSION: 1. Diabetic ketoacidosis. 2. Uncontrolled type 2 diabetes with medical noncompliance. 3. Abdominal pain, nausea, vomiting, dehydration. 4. Chronic pain syndrome. 5. Anion gap metabolic acidosis secondary to diabetic ketoacidosis. PLAN: At this time, continue with diabetic ketoacidosis protocol. Endocrinology was consulted. Follow with insulin drip, IV fluids. Endocrinology is managing accordingly. Resume same home medications except hold on the insulin for now and have that being managed by Endocrinology. Abdominal pain, nausea, vomiting resolved. Continue with pain control and antinausea medication. Put on Lovenox for DVT prophylaxis. Encourage ambulation accordingly. The patient is on a diabetic diet. MD RALEIGH Lehman/MODL /[id number]
--- NOTE | 2019-06-11 01:12 | NUR ---
Report received from FERNANDA Norwood. Patient resting on her bed. No respiratory distress noted. Bed in lower position,locked Bed alarm on. V/S WNL. Will continue to monitor.
[2019-06-11] MEDS: SODIUM CHLORIDE 0.9% 1000ML 1,000 ML IV SCH ×3 (01:35→14:00)
--- NOTE | 2019-06-11 03:40 | NUR ---
Patient assisted to go to bathroom, had BM. Assisted to put her back to bed. Patient tolerated well. Will continue to monitor.
[2019-06-11 05:04] LABS: BASOPHILS % 0.3 % (0.0-1.0); EOSINOPHILS # (AUTO) 0.2 (0.0-0.4); EOSINOPHILS % 2.7 % (0.0-6.0); HEMATOCRIT 30.6 % (34.2-44.1); HEMOGLOBIN 9.9 g/dL (12.0-16.0); LYMPHOCYTES # (AUTO) 2.1 (1.0-3.2); LYMPHOCYTES % 34.3 % (18.0-39.1); MEAN CORPUSCULAR HEMOGLOBIN 25.3 pg (28-32); MEAN CORPUSCULAR HGB CONC 32.4 g/dL (31-35); MEAN CORPUSCULAR VOLUME 78.1 fL (81-99); MONOCYTES # (AUTO) 0.8 (0.2-0.8); NEUTROPHILS % 49.5 % (38.7-80.0); PLATELET COUNT 247 x10e3/uL (140-360); RED BLOOD COUNT 3.92 x10e6/uL (3.6-5.1); RED CELL DISTRIBUTION WIDTH 15.9 % (11.7-14.4)
[2019-06-11] MEDS: TRAMADOL HCL 50 MG TAB PO SCH ×4 (05:40→18:35)
[2019-06-11 05:44] LABS: ALANINE AMINOTRANSFERASE 19 IU/L (0-55); ALBUMIN 2.6 g/dL (3.5-5.0); ALBUMIN/GLOBULIN RATIO 0.8 (0.8-2.0); ALKALINE PHOSPHATASE 92 IU/L (40-150); ANION GAP 12.3 mmol/L (8-16); BLOOD UREA NITROGEN 7 mg/dL (7-26); BUN/CREATININE RATIO 9 (6-25); CALCIUM 7.9 mg/dL (8.4-10.2); CARBON DIOXIDE 16 mmol/L (22-29); CHLORIDE 113 mmol/L (98-107); CHOL/HDL RATIO 2.5 (3.0-3.6); CHOLESTEROL 109 MD/DL (0-199); CREATININE, SERUM 0.76 mg/dL (0.57-1.11); EST GLOMERULAR FILTRATION RATE > 60 ML/MIN (60-); GLUCOSE 119 mg/dL (74-118); HDL CHOLESTEROL 44 MG/DL (40-60); LDL CHOLESTEROL 50 MG/DL (60-130); LIPASE 5 U/L (8-78); POTASSIUM 3.3 mmol/L (3.5-5.1); SODIUM 138 mmol/L (136-145); TRIGLYCERIDES 74 MG/DL (0-149)
--- NOTE | 2019-06-11 07:06 | NUR ---
REPORT GIVEN TO COMING NURSE GUILLERMO. WALKING ROUND DONE.
[2019-06-11] MEDS: HYDROXYZINE HCL 25 MG TAB PO PRN ×3 (07:37→23:53)
[2019-06-11] MEDS: HYDROCODONE/APAP 5MG-325MG TAB PO PRN ×2 (11:03→19:30)
[2019-06-11] MEDS: ONDANSETRON HCL INJ 2MG/ML 2ML 2 MG/ML VIAL IV PRN ×2 (11:03→17:20)
[2019-06-11] MEDS ORDERED: INSULIN LISPRO 100 UNIT/1 ML 3ML VIAL SQ ONE (13:45)
--- NOTE | 2019-06-11 14:19 | NUR ---
Nutrition Screen Note RD Recommendation for Physician: -Rec advancing diet to ADA 1800 as medically appropriate -Rec outpatient diabetes management Plan of Care: RD following, monitoring for tolerance and adequacy Nutrition reason for involvement: Diagnosis Primary Diagnose(s): DKA PMH: Type 1 DM, anxiety Ht: 69in Wt: 177.75lb BMI: 26.2kg/m2 IBW: 145lb +/- 10% RD Assessment: (06/11) Chart reviewed. Labs and meds reviewed. 49yo F, who was admitted for DKA. HbA1c at 15.0%. Visited pt in the room. Pt reported good tolerance with full liquid diet. Pt was not compliant with insulin and diet because she underwent a lot of stress lately. Pt has received handouts and education on diabetic diet in the past but she was not following them. Pt stated I know what I need to do. Pt also reported having celiac disease; notified kitchen. Current Diet: full liquid Malnutrition Evaluation (06/11/2019) The patient does not meet criteria for a specified degree of malnutrition at this time. Will re-evaluate at follow-up as appropriate. Diet Education Needs Assessment: Diet education indicated, pt was not interested. Handouts were provided. Nutrition Care Level: low Signed: Caridad Trammell, MS, RD, LD
[2019-06-11] MEDS ORDERED: POTASSIUM CHLORIDE 20 MEQ TAB CR PO ONE (15:16)
[2019-06-11] MEDS: INSULIN LISPRO 100 UNIT/1 ML 3ML VIAL SQ SCH ×3 (16:30→20:29)
[2019-06-11] MEDS: GABAPENTIN 300 MG CAP PO SCH (16:34)
[2019-06-11] MEDS: ENOXAPARIN 30 MG/0.3 ML SYR SC SCH ×2 (16:34→16:41)
[2019-06-11] MEDS: LOPERAMIDE HCL 2 MG CAP PO PRN ×2 (18:34→20:21)
[2019-06-11] MEDS ORDERED: IOPAMIDOL 370 MG/ML 200 ML INFUS..BTL INJ ONE (18:34)
--- NOTE | 2019-06-11 18:58 | NUR ---
received reports from previous shift, patient is in the bed awake alert oriented, she refused telemetry and iv fluid at this time. no distress noted, denied any discomfort, stated still have diarrhea and per report she just had Imodium prn. will continue to monitor.
--- NOTE | 2019-06-11 19:50 | Progress Note ---
DATE: 06/11/2019 Medicine Progress Note SUBJECTIVE: The patient is currently being weaned off insulin drip. She is still on a NEW ACCOUNTS REPRESENTATIVE protocol. She is tolerating her diet well. She does complain of abdominal pain and some questionable lower extremity peripheral neuropathy pain. Otherwise, she is tolerating diet well with no complaints. OBJECTIVE: VITAL SIGNS: Temperature is 97.8, pulse 77, respiratory rate is 20, blood pressure 113/91, and pulse ox 98% on room air. GENERAL: Not in acute distress. Alert and oriented x3. Cooperative on examination. HEENT: Head; normocephalic, atraumatic. Eyes; pupils are equal, round, and reactive to light bilaterally. Extraocular movements intact bilaterally. Throat; no evidence of erythema or exudates in the posterior pharynx. Has poor dentition. NECK: Supple. Good range of motion. PULMONARY: Clear to auscultation bilaterally. No wheezing, no rales, no rhonchi, no crackles appreciated. CARDIOVASCULAR: Positive S1 and S2. No murmurs, rubs, or gallops appreciated. ABDOMEN: Soft, nondistended, and nontender to palpation. Bowel sounds present. MUSCULOSKELETAL: Strength is 5/5 throughout. No evidence of any muscle deficits on examination. No weakness appreciated. NEUROLOGIC: Cranial nerve II through XII grossly intact. No evidence of any neurological deficits on exam. SKIN: Intact. Warm to touch. Good cap refill. PSYCHIATRIC: Normal affect and mood. EXTREMITIES: No edema. Good range of motion throughout. LAB FINDINGS: White count 5.9, hemoglobin is 9.9, hematocrit is 31, platelets of 247. Chemistry; sodium 138, potassium 3.3, chloride 113, bicarb is 16, anion gap of 12, BUN 7, creatinine 0.76, glucose is 119, calcium 7.9. LFTs within normal range. Albumin 2.6. LDL is 50, lipase is 5, and TSH is 1.9. MICROBIOLOGY: None. IMAGING STUDIES: None. IMPRESSION: 1. Diabetic ketoacidosis. 2. Uncontrolled type 2 diabetes with medical noncompliance with hemoglobin A1c greater than 15. 3. Abdominal pain, nausea, vomiting, dehydration. 4. Chronic pain syndrome. 5. Anion gap metabolic acidosis secondary to diabetic ketoacidosis. 6. Diabetic diet. 7. Lower extremity peripheral neuropathy. PLAN: At this time, she is being currently weaned off the insulin drip. She is still on a diabetic ketoacidosis protocol being followed by Endocrinology. We will follow Endocrinology recommendations. We will replace electrolytes accordingly. She still complains of abdominal pain, so I will go ahead and just get CT abdomen and pelvis with IV contrast to rule out pancreatitis. We will go ahead and start her on gabapentin 300 mg p.o. b.i.d. for her peripheral neuropathy pain. I feel like she likely has neuropathy due to uncontrolled type 2 diabetes. She is still on pain control with Hope Hull. Lovenox for DVT prophylaxis. Diabetic diet. Repeat labs in the morning. I spent more than 35 minutes of critical care time on this case. The patient is still in the ICU. MD RALEIGH Lehman/MODL /[id number]
[2019-06-11] MEDS: INSULIN GLARGINE 100 UNITS/ML VIAL SQ SCH (20:31)
--- NOTE | 2019-06-11 21:05 | Diagnostic Imaging Report ---
EXAM: CT of the abdomen and pelvis WITHOUT contrast HISTORY: abdominal pain diarrhea COMPARISON: Images from CT of the abdomen and pelvis January 02, 2016. TECHNIQUE: The abdomen and pelvis were scanned utilizing a multidetector helical scanner. Coronal and sagittal reformats are available. PROTOCOL: Routine IV CONTRAST: 100 cc of Isovue-370 ORAL CONTRAST: Water RADIATION DOSE: Total DLP: 536.64 mGy*cm Estimated effective dose: (DLP x 0.015 x size factor) Dose modulation, iterative reconstruction, and/or weight based adjustment of the mA/kV was utilized to reduce the radiation dose to as low as reasonably achievable. COMPLICATIONS: None FINDINGS: LOWER THORAX: Unremarkable. HEPATOBILIARY: No mass. No biliary dilation. Metallic clips in the right upper quadrant of the abdomen are compatible with prior cholecystectomy. SPLEEN: No splenomegaly. PANCREAS: No focal masses or ductal dilatation. ADRENALS: No discrete adrenal nodule. KIDNEYS/URETERS: No hydronephrosis, stones, or definite solid mass lesions. Excreted contrast within the renal collecting systems and partially opacifying the ureters. PELVIC ORGANS/BLADDER: The uterus is anteflexed. GI TRACT: Mildly dilated loops of small bowel within the left upper quadrant the abdomen, but no discrete abrupt transition point. There is air and fecal material throughout the colon. The appendix is normal. PERITONEUM / RETROPERITONEUM: No free air or fluid. LYMPH NODES: No pathologically enlarged lymph node. Nonspecific small mesenteric lymph nodes, most notably in the left upper quadrant of the abdomen. VESSELS: Unremarkable. BONES: No aggressive osseous lesion or acute fracture. Transitional lumbosacral anatomy with a right-sided pseudarthrosis. SOFT TISSUES: Otherwise, unremarkable. IMPRESSION: 1. Mildly dilated loops of small bowel in the left upper quadrant of the abdomen, considerations include ileus or partial small bowel obstruction. 2. Nonspecific reactive mesenteric lymph nodes, most likely secondary to an evolving infectious or inflammatory process. Signed by: Dr. Torrey Steven D.O., M.M.M. on 06/11/2019 9:02 PM
[2019-06-12] VITALS (7 sets, daily range): BP systolic 93–111; BP diastolic 65–84
[2019-06-12] MEDS: TRAMADOL HCL 50 MG TAB PO SCH ×4 (00:14→17:01)
[2019-06-12] MEDS: SODIUM CHLORIDE 0.9% 1000ML 1,000 ML IV SCH ×3 (00:15→20:00)
[2019-06-12] MEDS: ONDANSETRON HCL INJ 2MG/ML 2ML 2 MG/ML VIAL IV PRN ×2 (02:05→10:42)
[2019-06-12] MEDS: HYDROCODONE/APAP 5MG-325MG TAB PO PRN ×3 (04:11→21:15)
[2019-06-12 05:48] LABS: BASOPHILS % 0.4 % (0.0-1.0); EOSINOPHILS # (AUTO) 0.1 (0.0-0.4); EOSINOPHILS % 1.9 % (0.0-6.0); HEMATOCRIT 30.2 % (34.2-44.1); HEMOGLOBIN 9.4 g/dL (12.0-16.0); LYMPHOCYTES # (AUTO) 1.6 (1.0-3.2); LYMPHOCYTES % 24.3 % (18.0-39.1); MEAN CORPUSCULAR HEMOGLOBIN 24.9 pg (28-32); MEAN CORPUSCULAR HGB CONC 31.1 g/dL (31-35); MEAN CORPUSCULAR VOLUME 80.1 fL (81-99); MONOCYTES # (AUTO) 0.7 (0.2-0.8); MONOCYTES % 10.9 % (4.4-11.3); NEUTROPHILS # (AUTO) 4.2 (2.1-6.9); NEUTROPHILS % 62.2 % (38.7-80.0); PLATELET COUNT 235 x10e3/uL (140-360); RED BLOOD COUNT 3.77 x10e6/uL (3.6-5.1); RED CELL DISTRIBUTION WIDTH 16.6 % (11.7-14.4)
[2019-06-12 06:11] LABS: ANION GAP 11.3 mmol/L (8-16); BLOOD UREA NITROGEN 7 mg/dL (7-26); BUN/CREATININE RATIO 9 (6-25); CALCIUM 7.6 mg/dL (8.4-10.2); CARBON DIOXIDE 19 mmol/L (22-29); CHLORIDE 111 mmol/L (98-107); CREATININE, SERUM 0.81 mg/dL (0.57-1.11); EST GLOMERULAR FILTRATION RATE > 60 ML/MIN (60-); GLUCOSE 302 mg/dL (74-118); SODIUM 137 mmol/L (136-145)
[2019-06-12 06:45] LABS: POTASSIUM 4.3 mmol/L (3.5-5.1)
[2019-06-12] MEDS: INSULIN LISPRO 100 UNIT/1 ML 3ML VIAL SQ SCH ×7 (08:00→20:58)
[2019-06-12] MEDS: GABAPENTIN 300 MG CAP PO SCH ×2 (08:02→17:01)
[2019-06-12] MEDS: LOPERAMIDE HCL 2 MG CAP PO PRN ×3 (10:42→21:37)
[2019-06-12] MEDS: DEXTROSE 50% SYRINGE 50 ML IV PRN ×2 (13:35→23:40)
--- NOTE | 2019-06-12 13:43 | NUR ---
PT CALLED STATES SHE DIDNT FEEL GOOD, SLURRED SPEECH OBSERVED. PT BS CHECKED 30 AT THIS TIME. PT GIVEN 1 AMP OF DEXTROSE STAT GLUCOSE CHECK ORDERED FINGERSTICK GLUCOSE CHECKED AT 185 AT THIS TIME PT BEGAN TO RESPOND APPROPRIATELY.
--- NOTE | 2019-06-12 13:59 | NUR ---
MD BENAVIDEZ NOTIFIED OF PATIENT BS DROP. NO FURTHER ORDERS RECEIVED
--- NOTE | 2019-06-12 15:24 | NUR ---
NEW CONSULT CALLED FOR DR.M MARQUEZ SPOKE TO .
[2019-06-12] MEDS: ENOXAPARIN 30 MG/0.3 ML SYR SC SCH (17:00)
--- NOTE | 2019-06-12 19:05 | NUR ---
RECEIVED REPORTS FROM PREVIOUS NURSE, PATIENT IN BED, AWAKE ALERT ORIENTED, NO DISTRESS NOTED, AND DENIED ANY DISCOMFORT. AT THIS TIME, PATIENT DOES NOT HAVE IV ACCESS, AWAITING FOR PICC LINE TO BE INSERTED. WILL CONTINUE TO MONITOR.
--- NOTE | 2019-06-12 20:20 | Progress Note ---
DATE: 06/12/2019 Medicine Progress Note SUBJECTIVE: The patient is still complaining of some diarrhea on examination. Though she looks very comfortable, the nurse does state that she does have loose watery stool. Sugar levels are better controlled now. She can be transferred to the medical floor. LABORATORY DATA: Labs show white count of 6.7, hemoglobin of 9.4, hematocrit is 30, platelets of 335. MICROBIOLOGY: None. IMAGING STUDIES: CT abdomen and pelvis ordered yesterday showed mildly dilated loops of small bowel in the left upper quadrant of the abdomen. Consideration inflammatory process. PHYSICAL EXAMINATION: VITAL SIGNS: Temperature is 98.8, pulse 80, respiratory rate is 18, blood pressure 111/82, pulse oximetry 100% on room air. GENERAL: Not in acute distress. Alert and oriented x3. Cooperative on examination. HEENT: Head normocephalic, atraumatic. Eyes; pupils are equal, round, and reactive to light bilaterally. Extraocular movements are intact bilaterally. Neck is supple and good range of motion. Throat, no evidence of erythema or exudates in the posterior pharynx. Has poor dentition. PULMONARY: Clear to auscultation bilaterally. No wheezing, no rales, no rhonchi, no crackles appreciated. CARDIOVASCULAR: Positive S1, S2. No murmurs, rubs, or gallops appreciated. ABDOMEN: Soft, nondistended and nontender to palpation. Bowel sounds present. MUSCULOSKELETAL: Strength is 5/5 throughout. No evidence of any muscle deficits on examination. No weakness appreciated. NEUROLOGIC: Cranial nerves II through XII grossly intact. No evidence of any neurological deficits on exam. SKIN: Intact. Warm to touch. Good cap refill. PSYCHIATRIC: Normal affect and mood. EXTREMITIES: No edema. Good range of motion throughout. IMPRESSION: 1. Diabetic ketoacidosis, resolved. 2. Uncontrolled type 2 diabetes due to medical noncompliance, A1c greater than 15. 3. Abdominal pain, nausea, vomiting, dehydration, resolved. 4. Chronic pain syndrome. 5. Anion gap metabolic acidosis, resolved. 6. Lower extremity peripheral neuropathy. 7. Diarrhea. PLAN: At this time, her glucose levels are better controlled and monitored and evaluated by Endocrinology. She will go home on insulin. Her abdominal pain, nausea, vomiting, all resolved. She is on a diabetic diet as well. Her peripheral neuropathy improved with gabapentin, which we will continue. She still has diarrhea. CT abdomen and pelvis noted. We will go ahead and consult with GI Dr. Solis to see about the diarrhea situation. Otherwise, we will continue with same plan of care and monitor very closely. Spent more than 35 minutes of critical care time on this case. The patient is still in ICU. MD RALEIGH Lehman/BEVERLYL /[id number]
[2019-06-12] MEDS: HYDROXYZINE HCL 25 MG TAB PO PRN (20:58)
[2019-06-12] MEDS ORDERED: INSULIN GLARGINE 100 UNITS/ML VIAL SQ SCH (21:00)
--- NOTE | 2019-06-12 21:50 | NUR ---
PATIENT BLOOD SUGAR AFTER SHE ATE SNACKS AND DRINKS JUST NOW IS STILL 74; LANTUS IS HELD AT THIS TIME, SINCE PATIENT DOES NOT HAVE IV ACCESS. STILL AWAITING FOR PICC LINE TO BE INSERTED.
--- NOTE | 2019-06-12 23:41 | NUR ---
PATIENT LOOKED LETHARGIC, RANDOM BLOOD SUGAR CHECK DONE, ITS 31. PATIENT AGREED NURSE TO TRY INSERTING PERIPHERAL IV. SIZE 22 G PERIPHERAL IV INSERTED TO LEFT FOREARM, DEXTROSE 50% GIVEN, PATIENT IS AWAKE NOW, WILL RECHECK AGAIN BLOOD SUGAR IN 30 MINS.
--- NOTE | 2019-06-12 23:54 | NUR ---
RE CHECKED BLOOD SUGAR, NOW ITS 154. WILL CONTINUE MONITORING.
[2019-06-13] VITALS (8 sets, daily range): BP systolic 91–116; BP diastolic 63–84
--- NOTE | 2019-06-13 00:06 | NUR ---
PICC LINE TECH IN HER ROOM, DOING PICC LINE INSERTION AT THIS TIME.
[2019-06-13] MEDS: TRAMADOL HCL 50 MG TAB PO SCH ×5 (00:45→23:08)
--- NOTE | 2019-06-13 00:59 | Diagnostic Imaging Report ---
EXAMINATION: CHEST XRAY LINE PLACEMENT INDICATION: LINE PLACEMENT COMPARISON: Abdominal CT 06/11/2019 FINDINGS: AP view TUBES and LINES: Status post right upper extremity PICC placement with tip in the cavoatrial junction. LUNGS: Lungs are well inflated. Lungs are clear. There is no evidence of pneumonia or pulmonary edema. PLEURA: No pleural effusion or pneumothorax. HEART AND MEDIASTINUM: The cardiomediastinal silhouette is unremarkable. BONES AND SOFT TISSUES: No acute osseous lesion. Soft tissues are unremarkable. UPPER ABDOMEN: No free air under the diaphragm. IMPRESSION: Status post right upper extremity PICC placement with tip in the cavoatrial junction.. No acute intrathoracic abnormality Signed by: Diego Perkins DO on 06/13/2019 12:56 AM
[2019-06-13] MEDS: LOPERAMIDE HCL 2 MG CAP PO PRN ×2 (03:45→16:08)
[2019-06-13] MEDS: ONDANSETRON HCL INJ 2MG/ML 2ML 2 MG/ML VIAL IV PRN ×2 (06:15→15:11)
--- NOTE | 2019-06-13 07:00 | NUR ---
Pt received resting in bed. Alert and oriented to staff and surroundings. Encouraged to press call whitten if help needed. Call whitten within reach. Pt with right upper arm double lumen PICC line receiving IV fluid as ordered. Call whitten within reach. Will monitor
[2019-06-13] MEDS: SODIUM CHLORIDE 0.9% 1000ML 1,000 ML IV SCH ×2 (07:05→16:07)
[2019-06-13] MEDS: GABAPENTIN 300 MG CAP PO SCH ×2 (08:00→16:07)
[2019-06-13] MEDS: INSULIN LISPRO 100 UNIT/1 ML 3ML VIAL SQ SCH ×7 (08:00→21:00)
--- NOTE | 2019-06-13 08:00 | NUR ---
Pt resting comfortably in bed. All meds given as ordered. Call whitten within reach. Will monitor
[2019-06-13] MEDS: HYDROXYZINE HCL 25 MG TAB PO PRN ×2 (10:58→16:07)
[2019-06-13] MEDS: HYDROCODONE/APAP 5MG-325MG TAB PO PRN ×2 (10:58→20:01)
--- NOTE | 2019-06-13 11:10 | NUR ---
Blood glucose 47. Pt is asymptomatic. Given sandwich and Milk as requested. Will monitor
[2019-06-13] MEDS ORDERED: INSULIN LISPRO 100 UNIT/1 ML 3ML VIAL SQ ONE (11:45)
--- NOTE | 2019-06-13 12:15 | NUR ---
Bloof glucose 72. Pt is asymptomatic. Dr. Bowen notified. 3Units Humalog insulin given. Pt is currently consuming lunch
--- NOTE | 2019-06-13 16:08 | NUR ---
BLOOD SUGAR 69. PT GIVEN FOOD. WILL FOLLOW UP
--- NOTE | 2019-06-13 16:42 | NUR ---
1630. Blood sugar [address] Bowen notified. 5 units Humalog held as ordered. Will monitor
[2019-06-13] MEDS: ENOXAPARIN 30 MG/0.3 ML SYR SC SCH (16:43)
--- NOTE | 2019-06-13 18:07 | NUR ---
Updated Dr. Esha Solis regarding pt's condition. New orders given. Will monitor
[2019-06-13] MEDS ORDERED: SODIUM CHLORIDE 0.9% 50ML 50 ML ONE (18:28)
[2019-06-13] MEDS ORDERED: PANTOPRAZOLE 40 MG 10ML VIAL IV ONE (18:30)
[2019-06-13] MEDS: PANTOPRAZOL 40MG/SOD CHL 0.9% 50 ML IV SCH ×2 (18:36→21:46)
--- NOTE | 2019-06-13 19:20 | Progress Note ---
DATE: 06/13/2019 Medicine Progress Note SUBJECTIVE: The patient is doing well today. She did have some hypoglycemic episodes requiring for the patient to eat with much improvement. Endocrinology was notified of this issue. She still has significant amount of diarrhea. GI is consulted to come and evaluate her. PHYSICAL EXAMINATION: VITAL SIGNS: Temperature, she is afebrile and normotensive. Respiratory rate is good. She is saturating 96% on room air. GENERAL: Not in acute distress. Alert and oriented x3. Cooperative on examination. HEENT: Head; normocephalic, atraumatic. Eyes; pupils are equal, round, and reactive to light bilaterally. Extraocular movements are intact bilaterally. Throat; no evidence of erythema or exudates in the posterior pharynx. Has poor dentition. NECK: Supple. Good range of motion. PULMONARY: Clear to auscultation bilaterally. No wheezing, no rales, no rhonchi, no crackles appreciated. CARDIOVASCULAR: Positive S1, S2. No murmurs, rubs, or gallops appreciated. ABDOMEN: Soft, nondistended and nontender to palpation. Bowel sounds present. MUSCULOSKELETAL: Strength is 5/5 throughout. No evidence of any muscle deficits on examination. No weakness appreciated. NEUROLOGIC: Cranial nerves II through XII grossly intact. No evidence of any neurological deficits on exam. SKIN: Intact. Warm to touch. Good cap refill. PSYCHIATRIC: Normal affect and mood. EXTREMITIES: No edema. Good range of motion throughout. LABORATORY DATA: CBC stable. Chemistries; reviewed and stable. IMPRESSION: 1. Diabetic ketoacidosis, improved, now with hypoglycemia being managed accordingly by Endocrinology. 2. Uncontrolled type 2 diabetes due to medical noncompliance. 3. Abdominal pain, nausea, vomiting, dehydration resolved. 4. Chronic pain syndrome. 5. Metabolic acidosis, resolved. 6. Lower extremity peripheral neuropathy, improved. 7. Diarrhea still present. PLAN: At this time, the insulin regimen is being managed by Endocrinology. We will continue to follow with Endocrinology. Her peripheral neuropathy improved with gabapentin as well as pain control. Still has diarrhea and which GI was consulted to come and talk with the patient and further evaluate. Otherwise, we will continue same plan of care. Follow up with the consultants. Get a.m. labs. MD RALEIGH Lehman/BEVERLYL /[id number]
--- NOTE | 2019-06-13 20:10 | NUR ---
Received report from IMCU nurse.
--- NOTE | 2019-06-13 20:27 | NUR ---
Patient arrived to floor via w/c. Patient denies pain or discomfort at this time. Patient request to go down stairs to vendor machine.
--- NOTE | 2019-06-13 20:27 | NUR ---
gave reports to Yuli MICHAEL, patient transferred to [id number]. she is awake alert oriented ambulatory no distress noted.
--- NOTE | 2019-06-13 20:36 | NUR ---
Patient off the floor.
[2019-06-13] MEDS: INSULIN GLARGINE 100 UNITS/ML VIAL SQ SCH (21:00)
[2019-06-13] MEDS: SUCRALFATE 1 GM TAB PO SCH (21:00)
--- NOTE | 2019-06-13 21:00 | NUR ---
Patient states blood glucose is low. Checked BS 45. Patient without s and s. Patient given juice, sandwich, pudding. Recheck 98. Continue monitor.
[2019-06-13] MEDS: METOCLOPRAMIDE HCL 10 MG/2ML VIAL IV SCH (23:08)
[2019-06-14] VITALS (8 sets, daily range): BP systolic 105–152; BP diastolic 56–86
--- NOTE | 2019-06-14 | NUR ---
Patient is going outside to smoke. Informed patient that this is non smoking fac. Possible that the Doctor will d/c you. Pt states OK.
[2019-06-14] MEDS: SODIUM CHLORIDE 0.9% 1000ML 1,000 ML IV SCH (04:24)
[2019-06-14] MEDS: PANTOPRAZOL 40MG/SOD CHL 0.9% 50 ML IV SCH ×4 (04:24→22:22)
--- NOTE | 2019-06-14 04:52 | NUR ---
Dr Solis on the floor to see patient. orders received and conpleted.
[2019-06-14] MEDS: TRAMADOL HCL 50 MG TAB PO SCH ×3 (05:21→18:00)
[2019-06-14] MEDS: METOCLOPRAMIDE HCL 10 MG/2ML VIAL IV SCH ×3 (05:21→17:00)
--- NOTE | 2019-06-14 05:56 | NUR ---
Blood drawn from PICC line. Flushed with 10cc of water.
[2019-06-14 06:19] LABS: BASOPHILS % 0.3 % (0.0-1.0); EOSINOPHILS # (AUTO) 0.2 (0.0-0.4); EOSINOPHILS % 3.3 % (0.0-6.0); HEMATOCRIT 26.7 % (34.2-44.1); HEMOGLOBIN 8.3 g/dL (12.0-16.0); LYMPHOCYTES # (AUTO) 1.7 (1.0-3.2); MEAN CORPUSCULAR HEMOGLOBIN 25.3 pg (28-32); MEAN CORPUSCULAR HGB CONC 31.1 g/dL (31-35); MEAN CORPUSCULAR VOLUME 81.4 fL (81-99); MONOCYTES # (AUTO) 0.6 (0.2-0.8); MONOCYTES % 10.6 % (4.4-11.3); NEUTROPHILS # (AUTO) 3.2 (2.1-6.9); NEUTROPHILS % 56.6 % (38.7-80.0); PLATELET COUNT 190 x10e3/uL (140-360); RED BLOOD COUNT 3.28 x10e6/uL (3.6-5.1); RED CELL DISTRIBUTION WIDTH 17.2 % (11.7-14.4)
[2019-06-14 06:48] LABS: ANION GAP 11.7 mmol/L (8-16); BLOOD UREA NITROGEN 9 mg/dL (7-26); BUN/CREATININE RATIO 13 (6-25); CARBON DIOXIDE 20 mmol/L (22-29); CHLORIDE 111 mmol/L (98-107); EST GLOMERULAR FILTRATION RATE > 60 ML/MIN (60-); GLUCOSE 157 mg/dL (74-118); POTASSIUM 3.7 mmol/L (3.5-5.1); SODIUM 139 mmol/L (136-145)
[2019-06-14 06:50] LABS: MAGNESIUM 1.6 MG/DL (1.3-2.1)
--- NOTE | 2019-06-14 06:52 | NUR ---
RECEIVED PATIENT RESTING IN BED. NO ACUTE DISTRESS NOTED. NO S/S OF PAIN NOTED. CALL LIGHT WITHIN REACH. BED IN THE LOWEST POSITION.
[2019-06-14] MEDS: INSULIN LISPRO 100 UNIT/1 ML 3ML VIAL SQ SCH ×7 (07:30→21:00)
[2019-06-14] MEDS: SUCRALFATE 1 GM TAB PO SCH ×4 (07:30→21:22)
[2019-06-14] MEDS: DEXTROSE 50% SYRINGE 50 ML IV PRN (07:37)
--- NOTE | 2019-06-14 07:37 | NUR ---
PATIENT'S BG IS 27, ADMINISTERED DEXTROSE 50% ORDERED ON EMAR.
[2019-06-14] MEDS: GABAPENTIN 300 MG CAP PO SCH ×2 (07:43→16:55)
[2019-06-14] MEDS ORDERED: DEXTROSE 50% SYRINGE 50 ML IV STA (08:55)
[2019-06-14] MEDS: DEXTROSE 5%/0.9% SOD CHL 1,000 ML IV SCH (09:25)
--- NOTE | 2019-06-14 10:29 | NUR ---
BED PUMP APPLIED TO MATTRESS AT THIS TIME.
--- NOTE | 2019-06-14 14:25 | NUR ---
PATIENT C/O FEELING LIKE HER BG IS LOW. ASSESSED BG AND IS 46. DR. YAMILA VANCE, PER MD INCREASE D5NS FLUIDS TO 70CC/HR DO NOT ADMINISTER DEXTROSE 50% UNLESS PATIENT IS ALTERED MENTAL STATUS.
[2019-06-14] MEDS: NICOTINE 21 MG/EA PATCH TOP SCH (14:55)
[2019-06-14] MEDS ORDERED: PROPOFOL IV EMULSION 10 MG/ML 50 ML VIAL ONE (15:01)
[2019-06-14] MEDS: ONDANSETRON HCL INJ 2MG/ML 2ML 2 MG/ML VIAL IV PRN ×2 (15:06→22:19)
[2019-06-14] MEDS ORDERED: FENTANYL CITRATE/PF 100MCG/2 ML INJ ONE (15:14)
[2019-06-14] MEDS ORDERED: MIDAZOLAM HCL 2 MG/2 ML VIAL ONE (15:14)
[2019-06-14] MEDS: ENOXAPARIN 30 MG/0.3 ML SYR SC SCH (16:55)
--- NOTE | 2019-06-14 17:50 | NUR ---
PATIENT OFF THE UNIT FOR PROCEDURE.
--- NOTE | 2019-06-14 19:19 | NUR ---
REPORT GIVEN TO ONCOMING NURSE. PATIENT IS OFF THE UNIT FOR PROCEDURE.
--- NOTE | 2019-06-14 19:22 | NUR ---
PT IS OFF THE FLOOR FOR A PROCEDURE. WILL CONTINUE TO MONITOR.
--- NOTE | 2019-06-14 20:20 | NUR ---
PT IS BACK IN HER ROOM FROM HER PROCEDURE. RESPIRATION IS EVEN AND UNLABORED, NO DISTRESS. WILL CONTINUE TO MONITOR.
[2019-06-14] MEDS: HYDROCODONE/APAP 5MG-325MG TAB PO PRN (21:14)
[2019-06-14] MEDS: INSULIN GLARGINE 100 UNITS/ML VIAL SQ SCH (21:22)
[2019-06-14] MEDS: LOPERAMIDE HCL 2 MG CAP PO PRN (22:07)
--- NOTE | 2019-06-14 23:16 | Progress Note ---
DATE: 06/14/2019 Medicine progress note. SUBJECTIVE: The patient is scheduled for EGD later today. No overnight events. PHYSICAL EXAMINATION: VITAL SIGNS: Temperature is 97.4, pulse 83, respiratory rate 18, blood pressure 110/56, and pulse ox 97% on room air. GENERAL: Not in acute distress. Alert and oriented x3. Cooperative on examination. HEENT: Head is normocephalic and atraumatic. Eyes: Pupils are equal, round, and reactive to light bilaterally. Extraocular movements are intact bilaterally. NECK: Supple. Good range of motion. Throat; no evidence of erythema or exudate in posterior pharynx. Has poor dentition. PULMONARY: Clear to auscultation bilaterally. No wheezing, rales, or rhonchi. No crackles appreciated. CARDIOVASCULAR: Positive S1, S2. No murmurs, rubs, or gallops appreciated. ABDOMEN: Soft, nondistended, nontender to palpation. Bowel sounds present. MUSCULOSKELETAL: Strength is 5/5 throughout. No evidence of any muscle deficits on examination. No weakness appreciated. NEUROLOGIC: Cranial nerves II through XII grossly intact. No evidence of any neurological deficits on exam. SKIN: Intact. Warm to touch. Good cap refill. PSYCHIATRIC: Normal affect and mood. EXTREMITIES: No edema. Good range of motion throughout. LAB FINDINGS: Show white count 5.7, hemoglobin 8.3, hematocrit 26.7, and platelets of 190. Chemistries reviewed and stable. Blood glucose levels were low today and 62 given some dextrose. IMPRESSION: 1. Diabetic ketoacidosis, improved. Has some hypoglycemia this morning, being managed by Endocrinology. 2. Uncontrolled type 2 diabetes due to medical noncompliance, A1c greater than 15. 3. Abdominal pain, nausea, vomiting, dehydration, resolved. 4. Chronic pain syndrome. 5. Metabolic acidosis, resolved. 6. Lower extremity peripheral neuropathy, improved with gabapentin. 7. Diarrhea, improving. PLAN: At this time, insulin regimen to be adjusted per Endocrinology. Scheduled for EGD today by GI. Gabapentin is working for peripheral neuropathy. Get a.m. labs. Monitor very closely. Otherwise, we will continue same plan of care. Likely discharge home tomorrow. MD RALEIGH Lehman/MODL /[id number]
[2019-06-15] VITALS (8 sets, daily range): BP systolic 105–125; BP diastolic 59–80
[2019-06-15] MEDS: TRAMADOL HCL 50 MG TAB PO SCH ×4 (00:32→18:13)
[2019-06-15] MEDS: METOCLOPRAMIDE HCL 10 MG/2ML VIAL IV SCH ×4 (00:32→17:17)
--- NOTE | 2019-06-15 02:17 | Operative Report ---
DATE OF PROCEDURE: 06/14/2019 SURGEON: Dhaval Solis MD PROCEDURE: EGD with biopsies. INDICATIONS FOR EGD: Upper abdominal pain, nausea, and vomiting. MEDICATIONS: The patient was done under MAC, please see anesthesiologist's note. PROCEDURE IN DETAIL: With the patient in left lateral decubitus position, a flexible fiberoptic Olympus gastroscope was introduced into the esophagus under direct visualization without any difficulty. A minute tongue of velvety red mucosa was noted to extend proximally from the GE junction and that was biopsied to rule out Miller's. The scope was then advanced with ease into the stomach. Mucosa overlying the antrum and the body revealed some patchy erythema and low-grade to moderate edema and biopsies were obtained and sent to stain for H. pylori. Several hyperplastic-appearing polyps were noted in the body of the stomach and somewhat partially excised with the cold biopsy forceps. The pylorus was of normal contour and shape, it was intubated with ease and the scope was advanced all the way to the second portion of the duodenum. The biopsies were obtained from the proximal second portion and the duodenal bulb to rule out sprue. The scope was then withdrawn back into the stomach and retroflexed and mucosa overlying the fundus and the cardia appeared to be within normal limits. The scope was then straightened out, it was subsequently withdrawn, and the patient tolerated the procedure well. IMPRESSION: 1. Distal esophagitis, mild. 2. Rule out Miller esophagus. 3. Gastritis, biopsied. Biopsies sent to stain for H. pylori. 4. Gastric polyps, body, hyperplastic appearing, some partially excised with the cold biopsy forceps. 5. Rule out sprue. PLAN: Follow up histology. Continue current therapy. Dhaval Solis MD [facility] [place]/[facility] /[id number] cc: Zenon Barriga MD
[2019-06-15] MEDS: DEXTROSE 50% SYRINGE 50 ML IV PRN (03:57)
[2019-06-15 04:25] LABS: BASOPHILS % 0.4 % (0.0-1.0); EOSINOPHILS # (AUTO) 0.3 (0.0-0.4); EOSINOPHILS % 3.3 % (0.0-6.0); HEMATOCRIT 27.5 % (34.2-44.1); HEMOGLOBIN 8.6 g/dL (12.0-16.0); LYMPHOCYTES # (AUTO) 2.3 (1.0-3.2); MEAN CORPUSCULAR HEMOGLOBIN 25.6 pg (28-32); MEAN CORPUSCULAR HGB CONC 31.3 g/dL (31-35); MEAN CORPUSCULAR VOLUME 81.8 fL (81-99); MONOCYTES # (AUTO) 1.2 (0.2-0.8); MONOCYTES % 12.7 % (4.4-11.3); NEUTROPHILS # (AUTO) 5.4 (2.1-6.9); NEUTROPHILS % 58.2 % (38.7-80.0); PLATELET COUNT 208 x10e3/uL (140-360); RED BLOOD COUNT 3.36 x10e6/uL (3.6-5.1); RED CELL DISTRIBUTION WIDTH 17.6 % (11.7-14.4)
--- NOTE | 2019-06-15 04:26 | NUR ---
PT CALLED STATING THAT SHE THINKS HER BLOOD GLUCOSE WAS LOW. UPON CHECKING IT HER BLOOD SUGAR WAS 23. GAVE D50 WAS AND ORANGE JUICE. RECHECK IN 15 AND BLOOD GLUCOSE WAS 99. NOTIFY DR DRISCOLL AND NO NEW ORDER WERE GIVEN. WILL CONTINUE TO MONITOR.
[2019-06-15 04:43] LABS: ANION GAP 12.5 mmol/L (8-16); BLOOD UREA NITROGEN 5 mg/dL (7-26); BUN/CREATININE RATIO 7 (6-25); CALCIUM 7.7 mg/dL (8.4-10.2); CARBON DIOXIDE 21 mmol/L (22-29); CHLORIDE 109 mmol/L (98-107); CREATININE, SERUM 0.72 mg/dL (0.57-1.11); EST GLOMERULAR FILTRATION RATE > 60 ML/MIN (60-); GLUCOSE 90 mg/dL (74-118); POTASSIUM 3.5 mmol/L (3.5-5.1); SODIUM 139 mmol/L (136-145)
--- NOTE | 2019-06-15 06:54 | NUR ---
RECEIVED PATIENT RESTING IN BED. NO ACUTE DISTRESS NOTED. CALL LIGHT WITHIN REACH. BED IN THE LOWEST POSITION.
[2019-06-15] MEDS: INSULIN LISPRO 100 UNIT/1 ML 3ML VIAL SQ SCH ×7 (07:30→21:42)
--- NOTE | 2019-06-15 08:24 | NUR ---
CALLED DR. DRISCOLL TO NOTIFY HIM OF PATIENT BG OF 45, OJ ADMINISTERED, AND RE-ASSESSED TO BE 61. PER MD GIVE PATIENT ONLY 3 UNITS OF HUMALOG AFTER SHE EATS.
[2019-06-15] MEDS: SUCRALFATE 1 GM TAB PO SCH ×4 (08:39→21:42)
[2019-06-15] MEDS: GABAPENTIN 300 MG CAP PO SCH ×2 (08:39→17:17)
[2019-06-15] MEDS: NICOTINE 21 MG/EA PATCH TOP SCH (08:39)
[2019-06-15] MEDS: PANTOPRAZOL 40MG/SOD CHL 0.9% 50 ML IV SCH (08:45)
[2019-06-15] MEDS: DEXTROSE 5%/0.9% SOD CHL 1,000 ML IV SCH (08:45)
[2019-06-15] MEDS: FUROSEMIDE INJ 10 MG/ML 4 ML VIAL IV SCH ×2 (12:27→17:17)
--- NOTE | 2019-06-15 13:09 | Progress Note ---
DATE: 06/15/2019 Medicine Progress Note SUBJECTIVE: The patient was in the process of being discharged today, but was found to be very hypoglycemic early this morning, requiring some adjustments in her insulin. At this time, we will go ahead and stop the D5 drip. Monitor very closely. If she does well later today, she can possibly be discharged if cleared by Endocrinology. I discussed this with the nursing staff. PHYSICAL EXAMINATION: VITAL SIGNS: Temperature 97.7, pulse 97, respiratory rate is 18, blood pressure 125/80, pulse ox 98% on room air. GENERAL: Not in acute distress. Alert and oriented x3. Cooperative on examination. HEENT: Head; normocephalic and atraumatic. Eyes; pupils are equal, round, and reactive to light bilaterally. Extraocular movements intact bilaterally. Throat; no evidence of erythema or exudate in the posterior pharynx. Has poor dentition. NECK: Supple. Good range of motion. PULMONARY: Clear to auscultation bilaterally. No wheezing, rales, or rhonchi. No crackles appreciated. CARDIOVASCULAR: Positive S1 and S2. No murmurs, rubs, or gallops appreciated. ABDOMEN: Soft, nondistended, and nontender to palpation. Bowel sounds present. MUSCULOSKELETAL: Strength is 5/5 throughout. No evidence of any muscle deficits on examination. No weakness appreciated. NEUROLOGIC: Cranial nerve II through XII grossly intact. No evidence of any neurological deficits on exam. SKIN: Intact. Warm to touch. Good cap refill. PSYCHIATRIC: Normal affect and mood. EXTREMITIES: No edema. Good range of motion throughout. LABORATORY DATA: Show CBC is normal. Chemistries reviewed and stable. MICROBIOLOGY: None. IMAGING: None. IMPRESSION: 1. Diabetic ketoacidosis, resolved, but had hypoglycemia early this morning, in which I need to monitor overnight and have adjustment of insulin by Endocrinology. 2. Uncontrolled type 2 diabetes due to medical noncompliance, A1c greater than 15. 3. Abdominal pain, nausea, vomiting, status post EGD that showed esophagitis and gastritis. 4. Chronic pain syndrome. 5. Metabolic acidosis. 6. Lower extremity peripheral neuropathy, improved with gabapentin. 7. Diarrhea, resolved. PLAN: At this time, her glucose levels were stable, but dropped very early in the morning, which must be evaluated closely and monitored overnight. Endocrinology is to write for the prescriptions for insulin on this patient. EGD report noted. We will continue with oral Protonix. Discontinue Protonix drip. She reports right upper extremity swelling where her PICC line is. We will go ahead and get a venous Doppler of the right upper extremity and discontinue PICC line upon discharge. Put on Lasix 40 mg IV b.i.d. x2 doses. We are going to resume same plan of care, same medications for now. I think possibly the patient can be discharged home tomorrow if everything else come back negative. MD RALEIGH Lehman/MODL /[id number]
[2019-06-15] MEDS: ONDANSETRON HCL INJ 2MG/ML 2ML 2 MG/ML VIAL IV PRN (16:20)
[2019-06-15] MEDS: ENOXAPARIN 30 MG/0.3 ML SYR SC SCH (17:17)
[2019-06-15] MEDS: PANTOPRAZOLE SOD 40 MG TABEC PO SCH (17:17)
--- NOTE | 2019-06-15 19:07 | NUR ---
REPORT GIVEN TO ONCOMING NURSE. WALKING ROUNDS DONE. PATIENT IS IN STABLE CONDITION, SITTING UP IN RECLINER. NO ACUTE DISTRESS NOTED. CALL LIGHT WITHIN REACH. BED IN THE LOWEST POSITION.
--- NOTE | 2019-06-15 19:19 | NUR ---
PT IS RESTING IN BED. RESPIRATION IS EVEN AND UNLABORED, NO DISTRESS NOTED. BED IN THE LOWEST POSITION, LOCKED, AND CALL LIGHT WITHIN REACH. WILL CONTINUE TO MONITOR.
--- NOTE | 2019-06-15 20:36 | NUR ---
PER DR ENCISO START PT ON PROTOCOL FOR HEPARIN DRIP AND IRON PANEL FOR AM LABS. WILL CONTINUE TO MONITOR.
[2019-06-15] MEDS ORDERED: HEPARIN 25,000 UNIT 1,400 UNIT in DEXTROSE 5% 250ML 250 ML IV SCH ×4 (20:45)
[2019-06-15] MEDS ORDERED: HEPARIN SOD (PORCINE) 5,000 UNIT/ML VIAL IV ONE (20:45)
[2019-06-15] MEDS ORDERED: INSULIN GLARGINE 100 UNITS/ML VIAL SQ SCH (21:00)
[2019-06-15 21:49] LABS: BASOPHILS % 0.2 % (0.0-1.0); EOSINOPHILS # (AUTO) 0.4 (0.0-0.4); EOSINOPHILS % 4.6 % (0.0-6.0); HEMATOCRIT 29.2 % (34.2-44.1); HEMOGLOBIN 9.3 g/dL (12.0-16.0); LYMPHOCYTES # (AUTO) 2.1 (1.0-3.2); MEAN CORPUSCULAR HEMOGLOBIN 25.8 pg (28-32); MEAN CORPUSCULAR HGB CONC 31.8 g/dL (31-35); MEAN CORPUSCULAR VOLUME 81.1 fL (81-99); MONOCYTES # (AUTO) 0.8 (0.2-0.8); MONOCYTES % 9.8 % (4.4-11.3); NEUTROPHILS # (AUTO) 4.9 (2.1-6.9); NEUTROPHILS % 60.2 % (38.7-80.0); PLATELET COUNT 228 x10e3/uL (140-360); RED CELL DISTRIBUTION WIDTH 17.7 % (11.7-14.4)
[2019-06-15 22:00] LABS: INR 0.83; PARTIAL THROMBOPLASTIN TIME 26.5 seconds (23.8-35.5); PROTHROMBIN TIME 11.9 seconds (11.9-14.5)
[2019-06-15] MEDS: HYDROXYZINE HCL 25 MG TAB PO PRN (22:43)
[2019-06-16] VITALS (8 sets, daily range): BP systolic 105–126; BP diastolic 62–78
[2019-06-16] MEDS: METOCLOPRAMIDE HCL 10 MG/2ML VIAL IV SCH ×4 (00:24→16:48)
[2019-06-16] MEDS: TRAMADOL HCL 50 MG TAB PO SCH ×5 (00:24→16:48)
--- NOTE | 2019-06-16 02:37 | Consultation ---
DATE OF CONSULTATION: 06/15/2019 REQUESTING PHYSICIAN: Zenon Barriga MD CONSULTING PHYSICIAN: Ammy Paiz MD, Hematology-Oncology Service. REASON FOR CONSULTATION: Evaluation and management of patient with anemia and acute deep vein thrombosis. HISTORY OF PRESENTING ILLNESS: Ms. Shrestha is a very pleasant 49-year-old female with known history of type 2 diabetes mellitus, anxiety disorder, and history of pulmonary embolism four years ago, which was treated with anticoagulation for six months, now presented with nausea, vomiting, abdominal pain, and dehydration. She was diagnosed with diabetic ketoacidosis, requiring ICU stay. She had difficult IV access, resulting had a PICC line placement in the right arm. Due to anemia, she also underwent GI workup including EGD revealing gastritis and esophagitis. Today, she was noted to have a right upper extremity swelling, subsequently underwent Doppler of right upper extremity revealing a right subclavian and basilic vein thrombosis. At this point, Hematology-Oncology has been consulted to assist with the management. Presently, the patient is lying comfortably, not in acute distress, breathing normally. Denies any nausea, vomiting, fevers, chills, headache, or blurring of vision. She stated that she was diagnosed with pulmonary embolism four years ago and was treated with anticoagulation with Coumadin for six months. PAST MEDICAL HISTORY: 1. History of pulmonary embolism. 2. Type 2 diabetes mellitus. 3. Anxiety disorder. 4. Noncompliance with medical care. PAST SURGICAL HISTORY: None. SOCIAL HISTORY: She denies history of smoking, alcohol use, or illicit drug use. She is . FAMILY HISTORY: Positive for hypertension and diabetes mellitus. ALLERGIES: PENICILLIN AND MORPHINE. CURRENT MEDICATIONS: Reviewed as per electronic medical record. REVIEW OF SYSTEMS: A 14-point review of systems negative except as mentioned per history of presenting illness. PHYSICAL EXAMINATION: VITAL SIGNS: Reviewed as per electronic medical record. HEENT: PERRLA. Extraocular movements are intact. Head is atraumatic and normocephalic. NECK: Supple. CVS: S1, S2 audible. RESPIRATORY: Decreased bilateral air entry. ABDOMEN: Soft. Positive bowel sounds. EXTREMITIES: Negative edema. Right upper extremity swelling. NEURO: The patient is alert and awake. LABORATORY DATA: White blood cell count of 9.3, hemoglobin 8.6, hematocrit 27.5, and platelets 208. BUN 5, creatinine 0.7, and INR 0.93. ASSESSMENT AND PLAN: Ms. Shrestha is a very pleasant 49-year-old female with known history of diabetes mellitus, anxiety disorder, and pulmonary embolism, now presented with diabetic ketoacidosis. She was treated with IV hydration and insulin. She required a PICC line placement in the right arm due to difficult IV access. Apparently, she developed swelling in the right upper extremity and now Doppler of upper extremity revealing deep vein thromboses involving the right subclavian and basilic vein. She also noted to have anemia, resulting underwent GI workup, which remained nondiagnostic other than gastritis. Hematology-Oncology has been consulted to assist with the management. I reviewed the record and discussed at length with the patient about her current disease and importance of further workup. Due to history of pulmonary embolism and now deep venous thrombosis, it appears that she might have underlying thrombophilia. At this point, recommendation would be for her to start on heparin as she is anemic. If her count stays stable in next 24 hours, then she can be switched to oral anticoagulation and planning to discharge home. She will follow up in outpatient setting. As far as anemia is concerned, I will get baseline workup. Anemia appears to be iron deficiency. She will require IV iron infusion in the outpatient setting. Thank you for the consult. I will continue to be available. Please call with questions. MD MCKYA Lennon/KAREEM /[id number]
[2019-06-16 05:06] LABS: BLOOD UREA NITROGEN 13 mg/dL (7-26); BUN/CREATININE RATIO 15 (6-25); CALCIUM 8.3 mg/dL (8.4-10.2); CARBON DIOXIDE 29 mmol/L (22-29); CHLORIDE 103 mmol/L (98-107); CREATININE, SERUM 0.88 mg/dL (0.57-1.11); EST GLOMERULAR FILTRATION RATE > 60 ML/MIN (60-); GLUCOSE 149 mg/dL (74-118); SODIUM 140 mmol/L (136-145)
--- NOTE | 2019-06-16 05:25 | NUR ---
PTT 88.4. DECREASE HEPARIN RATE FROM 14ML/HR TO 13ML/HR. WILL CONTINUE TO MONITOR.
[2019-06-16 05:45] LABS: FERRITIN 9.79 ng/mL (4.63-204.00)
[2019-06-16 06:05] LABS: FOLATE 5.1 ng/mL (7.0-15.4)
[2019-06-16 07:29] LABS: BASOPHILS % 0.3 % (0.0-1.0); EOSINOPHILS # (AUTO) 0.4 (0.0-0.4); EOSINOPHILS % 4.9 % (0.0-6.0); HEMATOCRIT 27.9 % (34.2-44.1); LYMPHOCYTES # (AUTO) 2.1 (1.0-3.2); LYMPHOCYTES % 29.3 % (18.0-39.1); MEAN CORPUSCULAR HEMOGLOBIN 26.6 pg (28-32); MEAN CORPUSCULAR HGB CONC 32.3 g/dL (31-35); MEAN CORPUSCULAR VOLUME 82.5 fL (81-99); MONOCYTES # (AUTO) 0.7 (0.2-0.8); NEUTROPHILS % 55.2 % (38.7-80.0); PLATELET COUNT 221 x10e3/uL (140-360); RED BLOOD COUNT 3.38 x10e6/uL (3.6-5.1); RED CELL DISTRIBUTION WIDTH 17.9 % (11.7-14.4)
[2019-06-16] MEDS: INSULIN LISPRO 100 UNIT/1 ML 3ML VIAL SQ SCH ×7 (07:30→21:00)
[2019-06-16] MEDS: ONDANSETRON HCL INJ 2MG/ML 2ML 2 MG/ML VIAL IV PRN ×2 (07:46→18:00)
[2019-06-16] MEDS: HYDROXYZINE HCL 25 MG TAB PO PRN ×3 (07:50→21:30)
[2019-06-16] MEDS: NICOTINE 21 MG/EA PATCH TOP SCH (08:28)
[2019-06-16] MEDS: PANTOPRAZOLE SOD 40 MG TABEC PO SCH ×2 (08:28→16:48)
[2019-06-16] MEDS: SUCRALFATE 1 GM TAB PO SCH ×4 (08:28→21:20)
[2019-06-16] MEDS: GABAPENTIN 300 MG CAP PO SCH ×2 (08:28→16:48)
[2019-06-16] MEDS: DEXTROSE 5% IV SCH ×3 (11:28→23:00)
[2019-06-16] MEDS: HEPARIN IV SCH ×3 (11:28→23:00)
[2019-06-16] MEDS: LOPERAMIDE HCL 2 MG CAP PO PRN ×2 (13:42→21:30)
--- NOTE | 2019-06-16 15:30 | Progress Note ---
DATE: 06/16/2019 Medicine Progress Note SUBJECTIVE: The patient was found to have a right upper extremity DVT in the subclavian artery. Hematology was consulted. Started on heparin drip. PHYSICAL EXAMINATION: VITAL SIGNS: Temperature is 97.9, pulse 78, respiratory rate is 17, blood pressure was 111/68, pulse ox 98% on room air. GENERAL: Not in acute distress. Alert and oriented x3. Cooperative on examination. HEENT: Head; normocephalic and atraumatic. Eyes; pupils are equal, round, and reactive to light bilaterally. Extraocular movements are intact bilaterally. Throat; no evidence of erythema or exudate in the posterior pharynx. Has poor dentition. NECK: Supple. Good range of motion. PULMONARY: Clear to auscultation bilaterally. No wheezing, rales, or rhonchi. No crackles appreciated. CARDIOVASCULAR: Positive S1 and S2. No murmurs, rubs, or gallops appreciated. ABDOMEN: Soft, nondistended, and nontender to palpation. Bowel sounds present. MUSCULOSKELETAL: Strength is 5/5 throughout. No evidence of any muscle deficits on examination. No weakness appreciated. NEUROLOGIC: Cranial nerve II through XII grossly intact. No evidence of any neurological deficits on exam. SKIN: Intact. Warm to touch. Good cap refill. PSYCHIATRIC: Normal affect and mood. EXTREMITIES: No edema. Good range of motion throughout. LABORATORY DATA: Lab findings show white count is 7.1, hemoglobin is 9, hematocrit 27, platelets of 221. Chemistry, reviewed and stable. Stool cultures are pending ova and parasite which were sent by GI. Still pending results. IMPRESSION: 1. Diabetic ketoacidosis, improved. Insulin being managed by Endocrinology. 2. Right upper extremity deep vein thrombosis. Hematology consult, now on heparin drip. 3. Type 2 diabetes. 4. Abdominal pain, nausea, vomiting, dehydration, resolved. 5. Chronic pain syndrome. 6. Metabolic acidosis, resolved. 7. Right lower extremity peripheral neuropathy, improved with gabapentin. 8. Diarrhea. GI following. PLAN: At this time Endocrinology is managing the insulin. Hematology consult for DVT. Needs outpatient followup. Continue with heparin drip, revert to oral Eliquis upon discharge. We will remove the PICC line hopefully on Friday after we have some more anticoagulation to help with the clotting of the clot around the PICC line. I will follow with GI, Hematology and Endocrinology recommendations. MD RALEIGH Lehman/KAREEM /[id number]
--- NOTE | 2019-06-16 19:15 | NUR ---
BS rounds completed with morning nurse. Pt alert and orient to name. Lying in bed HOB 60 degrees. Denies pain at this time. Stated to Leave Door Open. Call whitten within reach. Bed low and locked.
[2019-06-16] MEDS ORDERED: INSULIN GLARGINE 100 UNITS/ML VIAL SQ SCH (21:00)
--- NOTE | 2019-06-16 23:00 | NUR ---
Pt has decreased level of consciousness. BS dropped 22mg/dl, admin 50 ml D50 IV (1 amp). PTT therapeutic at 59.5. Will continue to monitor.
--- NOTE | 2019-06-16 23:06 | NUR ---
Rechecked BS 153mg/dl, Pt increased level of consciousness. Responds to questions. Stated she ate her PM snack. Call whitten within reach. Will continue to monitor.
[2019-06-17] VITALS (8 sets, daily range): BP systolic 100–115; BP diastolic 58–76
[2019-06-17] MEDS: METOCLOPRAMIDE HCL 10 MG/2ML VIAL IV SCH ×5 (00:30→23:01)
[2019-06-17] MEDS ORDERED: CYANOCOBALAMIN INJ 1,000 MCG/ML VIAL IM STA (01:01)
[2019-06-17] MEDS: TRAMADOL HCL 50 MG TAB PO SCH ×5 (01:04→23:00)
[2019-06-17] MEDS ORDERED: CHOLESTYRAMINE 4 GM PACKET PO STA (01:12)
[2019-06-17] MEDS: LOPERAMIDE HCL 2 MG CAP PO PRN ×2 (01:30→22:45)
--- NOTE | 2019-06-17 01:30 | NUR ---
BS rounds with Dr. Esha Solis. Ordered Questran for loose stools x7 yesterday, Venofer, and B12 inj. Call whitten within reach.
[2019-06-17] MEDS ORDERED: IRON SUCROSE 100 MG in SODIUM CHLORIDE 0.9% 100 ML 100 ML IV SCH (05:00)
--- NOTE | 2019-06-17 06:30 | NUR ---
Pt admin scheduled pain medication 3/10 generalized pain. Stated relief from loose stools. No loose stools since Questran admin. Right upper PICC x2, Heparin drip running. Call whitten within reach.
--- NOTE | 2019-06-17 07:51 | NUR ---
Pt received in bed. Aox3 and able to verbalize needs. Denies any pain at this time. Continues on Heparin drip at this time. Denies SOB.
[2019-06-17] MEDS: SUCRALFATE 1 GM TAB PO SCH ×4 (08:12→21:55)
[2019-06-17] MEDS: PANTOPRAZOLE SOD 40 MG TABEC PO SCH ×2 (08:12→16:33)
[2019-06-17] MEDS: INSULIN LISPRO 100 UNIT/1 ML 3ML VIAL SQ SCH ×7 (08:14→21:00)
[2019-06-17] MEDS: GABAPENTIN 300 MG CAP PO SCH ×2 (08:15→16:33)
[2019-06-17] MEDS: CYANOCOBALAMIN INJ 1,000 MCG/ML VIAL IM SCH (08:15)
[2019-06-17] MEDS: CHOLESTYRAMINE 4 GM PACKET PO SCH ×2 (08:16→16:50)
[2019-06-17] MEDS: NICOTINE 21 MG/EA PATCH TOP SCH (08:16)
[2019-06-17] MEDS: HYDROXYZINE HCL 25 MG TAB PO PRN ×3 (08:29→22:45)
[2019-06-17] MEDS: ONDANSETRON HCL INJ 2MG/ML 2ML 2 MG/ML VIAL IV PRN ×2 (08:29→16:50)
[2019-06-17] MEDS: IRON SUCROSE 100 MG in SODIUM CHLORIDE 0.9% 100 ML 100 ML IV SCH (10:14)
--- NOTE | 2019-06-17 13:00 | NUR ---
Dr. Barriga here to see pt and states that pt will continue on heparin drip one more day and transition to oral anticoagulant tomorrow. PICC line will be discontinued tomorrow.
--- NOTE | 2019-06-17 15:56 | Progress Note ---
DATE: 06/17/2019 Medicine Progress SUBJECTIVE: The patient is doing well today with no complaints. I discussed the plan of care with the nurse present at bedside. Plan is to remove PICC line tomorrow after another day of hyper infusion. We are going to discharge her on oral Eliquis. I already discussed this with the engraver seals and she follow up as an outpatient as well. PHYSICAL EXAMINATION: VITAL SIGNS: She is afebrile, normotensive, respiratory rate is good. GENERAL: Not in acute distress. Alert, oriented x3. Cooperative on examination. HEENT: Head is normocephalic, atraumatic. Eyes; pupils are equal, round, and reactive bilaterally. Extraocular movements are intact bilaterally. Throat; no evidence of erythema or exudate in posterior pharynx. Has poor dentition. NECK: Supple. Good range of motion. PULMONARY: Clear to auscultation bilaterally. No wheezing, rales, or rhonchi. No crackles appreciated. CARDIOVASCULAR: Positive S1 and S2. No murmurs, rubs, or gallops appreciated. ABDOMEN: Soft, nondistended and nontender to palpation. Bowel sounds present. MUSCULOSKELETAL: Strength is 5/5 throughout. No evidence of any muscle deficits on examination. No weakness appreciated. NEUROLOGIC: Cranial nerve II through XII grossly intact. No evidence of any neurological deficits on exam. SKIN: Intact. Warm to touch. Good cap refill. PSYCHIATRIC: Normal affect and mood. EXTREMITIES: No edema. Good range of motion throughout. LABORATORY DATA: CBC, stable. Chemistry, none. IMPRESSION: 1. Diabetic ketoacidosis, resolved, indicated following. 2. Right upper extremity deep venous thrombosis. Hematology following. 3. Type 2 diabetes. 4. Abdominal pain, nausea, vomiting, dehydration, resolved. 5. Chronic pain syndrome. 6. Metabolic acidosis. 7. Bilateral lower extremity peripheral neuropathy, resolved. 8. Diarrhea, resolved. PLAN: At this time, continue with insulin as per Endocrinology. Tomorrow, we will remove the PICC line. Stop heparin drip. Start her on oral Eliquis. Discussed case with Hematology. The patient was advised to follow up with Hematology upon discharge in the next 1 to 2 weeks. Otherwise, she will be cleared for discharge home tomorrow. I discussed the plan of care with the nursing staff. MD RALEIGH Lehman/KAREEM /[id number]
--- NOTE | 2019-06-17 16:49 | NUR ---
Nutrition Follow-up Note RD Recommendation for Physician: - Continue diet as ordered - Rec outpatient diabetes management Plan of Care: RD following, monitoring for tolerance and adequacy Nutrition reason for involvement: Follow up Primary Diagnose(s): DKA PMH: Type 1 DM, anxiety Ht: 69in Wt: 177.75lb; 196lb BMI: 26.2kg/m2 IBW: 145lb +/- 10% RD Assessment: (06/17) Pt was discussed during AM rounds. Pt developed DVT on RUE. Visited pt in the room. Pt reported good appetite. No GI complains reported. Current diet is adequate and appropriate. Pt has no question at this time. (06/11) Chart reviewed. Labs and meds reviewed. 49yo F, who was admitted for DKA. HbA1c at 15.0%. Visited pt in the room. Pt reported good tolerance with full liquid diet. Pt was not compliant with insulin and diet because she underwent a lot of stress lately. Pt has received handouts and education on diabetic diet in the past but she was not following them. Pt stated I know what I need to do. Pt also reported having celiac disease; notified kitchen. Current Diet: ADA 1800 Malnutrition Evaluation (06/11/2019) The patient does not meet criteria for a specified degree of malnutrition at this time. Will re-evaluate at follow-up as appropriate. Diet Education Needs Assessment: Diet education indicated, pt was not interested. Handouts were provided. Nutrition Care Level: low Signed: Caridad Trammell, MS, RD, LD
--- NOTE | 2019-06-17 18:15 | NUR ---
Dr. Bowen was here and left prescription for pt for tresiba and humalog. Dr. Bowen states that pt is ok to discharge from his standpoint and she can follow up in two weeks with him or her aviation tactical readiness officer.
--- NOTE | 2019-06-17 19:05 | NUR ---
Completed BS rounds with morning nurse. Pt alert and orient to name. State she feels better than she as in days. Sitting up in bed. Right PICC, Heparin Drip running @11.5 mls/hr. Denies pain at this time. Friend at bedside. Call whitten within reach. Will continue to monitor.
--- NOTE | 2019-06-17 20:50 | NUR ---
Nurse informed by tech Pt was in the process of injecting herself in her fingertips with her own insulin, Pt was startled and dropped the insulin pen. Snapper On and charge nurse notified. RN, charge nurse, and housekeeper caregiver entered Pt's room to address accusation of self administering insulin. Pt denied giving herself insulin. Pt stated, "I was hiding my Neosporin because I know I am not suppose to take medicine". Pt stated she was only moving the insulin in her purse. Pt explained the dangers of self administration of medications, eric giving herself insulin when it is scheduled to be given by nurse. Pt continues to deny self administration of any medications. The Pt's Novolog pen and Tresiba pen were taken and placed in security pharmacy bag and placed in medication room.
--- NOTE | 2019-06-17 20:54 | NUR ---
Dr. Bowen called, no answer left voice message to call nurse.
[2019-06-17] MEDS ORDERED: INSULIN GLARGINE 100 UNITS/ML VIAL SQ SCH (21:00)
--- NOTE | 2019-06-17 21:10 | NUR ---
Spoke with Dr. Barriga and informed him of accusation of Pt attempting to inject herself with personal insulin without the nurse's knowledge. Dr. Barriga ordered to HOLD all insulin. Pt will be seen in the morning by doctor.
--- NOTE | 2019-06-17 23:52 | NUR ---
Spoke with Dr. Bowen regarding the accusation of Pt attempting to inject self with personal insulin without the nurse's knowledge. Dr. Bowen stated he would like Pt to receive Lantus 10 units.
[2019-06-18] VITALS: BP 118/81
[2019-06-18] MEDS ORDERED: INSULIN GLARGINE 100 UNITS/ML VIAL SQ ONE (00:15)
[2019-06-18] MEDS ORDERED: CHOLESTYRAMINE 4 GM PACKET PO ONE (01:15)
[2019-06-18 04:00] VITALS: BP 126/84
[2019-06-18] MEDS: LOPERAMIDE HCL 2 MG CAP PO PRN ×2 (06:00→09:09)
[2019-06-18] MEDS: ONDANSETRON HCL INJ 2MG/ML 2ML 2 MG/ML VIAL IV PRN ×2 (06:00→12:56)
[2019-06-18] MEDS: ACETAMINOPHEN 325 MG TAB PO PRN (06:00)
[2019-06-18] MEDS: METOCLOPRAMIDE HCL 10 MG/2ML VIAL IV SCH ×3 (06:00→17:48)
[2019-06-18 06:36] LABS: BASOPHILS % 0.4 % (0.0-1.0); EOSINOPHILS # (AUTO) 0.5 (0.0-0.4); EOSINOPHILS % 6.4 % (0.0-6.0); HEMATOCRIT 30.6 % (34.2-44.1); HEMOGLOBIN 9.4 g/dL (12.0-16.0); LYMPHOCYTES # (AUTO) 2.1 (1.0-3.2); LYMPHOCYTES % 29.6 % (18.0-39.1); MEAN CORPUSCULAR HEMOGLOBIN 25.4 pg (28-32); MEAN CORPUSCULAR HGB CONC 30.7 g/dL (31-35); MEAN CORPUSCULAR VOLUME 82.7 fL (81-99); MONOCYTES # (AUTO) 0.8 (0.2-0.8); MONOCYTES % 11.2 % (4.4-11.3); NEUTROPHILS # (AUTO) 3.8 (2.1-6.9); NEUTROPHILS % 52.1 % (38.7-80.0); PLATELET COUNT 205 x10e3/uL (140-360); RED CELL DISTRIBUTION WIDTH 17.1 % (11.7-14.4)
[2019-06-18 06:53] LABS: ANION GAP 12.6 mmol/L (8-16); BLOOD UREA NITROGEN 13 mg/dL (7-26); BUN/CREATININE RATIO 16 (6-25); CALCIUM 8.3 mg/dL (8.4-10.2); CARBON DIOXIDE 25 mmol/L (22-29); CHLORIDE 104 mmol/L (98-107); CREATININE, SERUM 0.79 mg/dL (0.57-1.11); EST GLOMERULAR FILTRATION RATE > 60 ML/MIN (60-); GLUCOSE 144 mg/dL (74-118); POTASSIUM 4.6 mmol/L (3.5-5.1); SODIUM 137 mmol/L (136-145)
[2019-06-18] MEDS: INSULIN LISPRO 100 UNIT/1 ML 3ML VIAL SQ SCH ×6 (07:30→16:30)
--- NOTE | 2019-06-18 07:30 | NUR ---
PATIENT IS AWAKE, ALERT AND IN STABLE CONDITION WITH NO S/S OF RESPIRATORY DISTRESS. NO PAIN VOICED. IV HEPARIN INFUSING. CALL LIGHT IS WITHIN REACH, PATIENT INSTRUCTED TO CALL FOR ASSISTANCE NEEDED.
[2019-06-18 07:50] VITALS: BP 128/89
[2019-06-18] MEDS: CYANOCOBALAMIN INJ 1,000 MCG/ML VIAL IM SCH (09:10)
[2019-06-18] MEDS: IRON SUCROSE 100 MG in SODIUM CHLORIDE 0.9% 100 ML 100 ML IV SCH (09:10)
[2019-06-18] MEDS: CHOLESTYRAMINE 4 GM PACKET PO SCH ×2 (09:10→17:48)
[2019-06-18] MEDS: GABAPENTIN 300 MG CAP PO SCH ×2 (09:10→17:44)
[2019-06-18] MEDS: NICOTINE 21 MG/EA PATCH TOP SCH (09:10)
[2019-06-18] MEDS: PANTOPRAZOLE SOD 40 MG TABEC PO SCH ×2 (09:10→17:44)
[2019-06-18] MEDS: SUCRALFATE 1 GM TAB PO SCH ×3 (09:10→17:44)
[2019-06-18] MEDS: DEXTROSE 5% IV SCH (09:45)
[2019-06-18] MEDS: HEPARIN IV SCH (09:45)
[2019-06-18 10:16] VITALS: BP 128/89
[2019-06-18] MEDS ORDERED: TRAMADOL HCL 50 MG TAB PO PRN (11:45)
--- NOTE | 2019-06-18 11:46 | NUR ---
ORDERS TO GIVE PT RX CARD FOR ELIQUIS CARD GIVEN TO PT WITH DIRECTIONS ON ACTIVATION (PROVIDES 1 YR OF ELIQUIS) OR CAN CAN 30 DAY FREE TRIAL PT UNDERSTANDS AND IS AGREEABLE
[2019-06-18] MEDS ORDERED: APIXABAN 5 MG TABLET PO ONE (12:00)
[2019-06-18 12:04] VITALS: BP 110/77
[2019-06-18] MEDS: HYDROXYZINE HCL 25 MG TAB PO PRN (12:56)
--- NOTE | 2019-06-18 13:49 | NUR ---
CALL PLACED OUT TO DR. DRISCOLL AT 1343 REGARDING PATIENT'S BLOOD GLUCOSE OF 46. RECEIVED CALL BACK FROM DR. DRISCOLL- DR. DRISCOLL STATED PATIENT CAN BE DISCHARGE AND PRESCRIPTIONS ARE LEFT IN THE CHART. DR. DRISCOLL AWARE OF PATIENT'S BLOOD GLUCOSE OF 46 - NO NEW ORDERS GIVEN.
--- NOTE | 2019-06-18 14:22 | NUR ---
CALLED AND SPOKE WITH DR. BLANDON REGARDING PATIENT'S BLOOD GLUCOSE. PRIOR TO THE PATIENT EATING LUNCH HER BLOOD GLUCOSE WAS 95. THE PATIENT ATE LUNCH (CHEESE BURGER AND FRUIT CUP) AND SOME TIME LATER CALLED AND ASKED FOR PCT TO CHECK HER BLOOD GLUCOSE LEVEL RESULT WAS 46 (AFTER EATING LUNCH). JUICE AND SNACKS WERE ADMINISTERED TO PATIENT. BLOOD GLUCOSE REASSESSED RESULT RESULT 121.
--- NOTE | 2019-06-18 14:39 | NUR ---
RECEIVED CALL FROM DR. MARQUEZ SPOKE TO DR. MARQUEZ ABOUT DISCHARGE MEDICATION PER DR. BLANDON'S REQUEST. DR. MARQUEZ WILL LEAVE PRESCRIPTIONS FOR PATIENT TOMORROW MORNING.
--- NOTE | 2019-06-18 15:07 | Progress Note ---
DATE: 06/18/2019 Medicine Progress Note SUBJECTIVE: The patient apparently was taking her own insulin last night. The nursing staff had caught the patient and stated she was injecting herself with her own insulin despite asking her the hospital. It kind of explains why she was always hypoglycemic. I believe that the patient has some malingering tendencies the hospital. We did take all her insulin and we did put it in the locked position. The patient is currently doing much better today with no complaints. She is scheduled to be discharged later today if she is stable. PHYSICAL EXAMINATION: VITAL SIGNS: Temperature is 96.6, pulse 75, respiratory rate is 18, blood pressure 128/89, pulse ox 99% on room air. GENERAL: Not in acute distress. Alert, oriented x3. Cooperative on examination. HEENT: Head is normocephalic, atraumatic. Eyes; pupils are equal, round, and reactive bilaterally. Extraocular movements are intact bilaterally. Throat; no evidence of erythema or exudate in posterior pharynx. Has poor dentition. NECK: Supple. Good range of motion. PULMONARY: Clear to auscultation bilaterally. No wheezing, rales, or rhonchi. No crackles appreciated. CARDIOVASCULAR: Positive S1 and S2. No murmurs, rubs, or gallops appreciated. ABDOMEN: Soft, nondistended and nontender to palpation. Bowel sounds present. MUSCULOSKELETAL: Strength is 5/5 throughout. No evidence of any muscle deficits on examination. No weakness appreciated. NEUROLOGIC: Cranial nerve II through XII grossly intact. No evidence of any neurological deficits on exam. SKIN: Intact. Warm to touch. Good cap refill. PSYCHIATRIC: Normal affect and mood. EXTREMITIES: No edema. Good range of motion throughout. LABORATORY DATA: Lab findings show white count 7.2, hemoglobin 9.4, hematocrit 31, platelets of 205. Chemistry; sodium 137, potassium 4.6, chloride 104, bicarb 25, anion gap of 12, BUN is 13, creatinine 0.79, glucose 144, calcium is 8.3, iron saturation 4%. IMPRESSION: 1. Diabetic ketoacidosis, resolved. 2. Right upper extremity deep vein thrombosis with thromboses. 3. Type 2 diabetes. 4. Abdominal pain, nausea, vomiting, dehydration, resolved. 5. Chronic pain syndrome. 6. Metabolic acidosis. 7. Bilateral lower extremity peripheral neuropathy. 8. Diarrhea. PLAN: At this time, we have taken the patient's insulin pens from her room, as she was injecting herself on top of what was given to her. We are going to continue Endocrinology. The patient will likely be discharged home today. Endocrinology to write the scripts for all the regimens he recommends. We will go ahead and stop the heparin drip, start her on Eliquis, remove PICC line for DVT. She has been advised to follow up with Hematology and Endocrinology in about 1 to 2 weeks' time. From a medical standpoint, she seems to be clear. I do want GI to come see the patient once discharged today. Otherwise, we will continue with same plan of care and monitor very closely. I also discussed with the patient not taking any of her insulin as this will cause worsening hypocalcemia especially cause issues. Nursing staff and hospital regime was notified of the situation and we talked about this last night as well. MD RALEIGH Lehman/KAREEM /[id number]
[2019-06-18 15:14] VITALS: BP 106/76
--- NOTE | 2019-06-18 19:14 | NUR ---
PATIENT IS IN STABLE CONDITION WITH NO S/S OF RESPIRATORY DISTRESS. NO PAIN VOICED. CALL LIGHT IS WITHIN REACH, PATIENT INSTRUCTED TO CALL FOR ASSISTANCE NEEDED. BEDSIDE REPORT GIVEN TO ONCOMING NURSE.
--- NOTE | 2019-06-18 19:25 | NUR ---
NOTIFY DR BLANDON THAT PT WANTS TO LEAVE AGAINST MEDICAL ADVICE. NO NEW ORDERS AT THIS TIME. WILL CONTINUE TO MONITOR.
--- NOTE | 2019-06-18 19:56 | NUR ---
PT RIGHT UPPER ARM PICC LINE WAS REMOVED WITH THE TIP INTACT. WILL CONTINUE TO MONITOR.
--- NOTE | 2019-06-18 20:04 | NUR ---
PT RECEIVED HER NOVOLOG AND TRESIBA PEN BACK. CHARGE NURSE FAISAL MASSEY WAS A WITNESS. WILL CONTINUE TO MONITOR.
--- NOTE | 2019-06-18 20:35 | NUR ---
PT WAS WHEELED OF THE UNIT WITH ALL OF HER BELONGS. RESPIRATION IS EVEN AND UNLABORED, NO DISTRESS NOTED.
--- NOTE | 2019-06-19 13:17 | Discharge Summary ---
FINAL DISCHARGE DIAGNOSES: 1. Left against medical advice. 2. Diabetic ketoacidosis, resolved. 3. Right upper extremity deep venous thrombosis, on anticoagulation. 4. Type 2 diabetes, uncontrolled. 5. Abdominal pain, nausea, vomiting, and dehydration, resolved. 6. Chronic pain syndrome. 7. Bilateral lower extremity peripheral neuropathy. 8. Diarrhea, resolved. CONSULTANTS: We had Endocrinology and hematology. PHYSICAL EXAMINATION: VITAL SIGNS: Temperature is 97.5, pulse 74, respiratory rate is 16, blood pressure 106/76, and pulse ox 99% on room air. LABORATORY FINDINGS: Show white count 7.3, hemoglobin 9.4, hematocrit is 31, and platelets of 205. Chemistry; sodium was 137, potassium was 4.6, chloride was 104, bicarbonate was 25, anion gap of 12, BUN was 13, and creatinine was 0.79. Iron saturation is 4%. Calcium was 8.3 and magnesium was 1.6. LFTs within normal range. Albumin 2.6. LDL was 50. Lipase was 4. TSH was 1.9. Urinalysis; urine was negative. Urine drug screen shows positive for opioids. Stool lactoferrin was positive. MICROBIOLOGY: Stool cultures were no evidence of Shigella or salmonella. E. coli was negative. Campylobacter was pending. IMAGING STUDIES: CT abdomen and pelvis; mildly dilated loops of small bowel in the left upper quadrant of the abdomen. Consideration could be evidence of partial small bowel obstruction. There are some reactive lymph nodes in the mesenteric area. Venous Doppler of the upper extremity consistent with right upper extremity acute partially occlusive DVT in the subclavian vein as well as the right basilic vein. HOSPITAL COURSE: This is a 49-year-old female with known history of diabetes, very uncontrolled, noncompliant with her care, came in with underlying diabetic ketoacidosis and was admitted to the ICU. Endocrinology was consulted. The patient was on DKA protocol, which she subsequently was converted from insulin drip to subcutaneous insulin. The patient was on IV fluids and we would continue to follow the DKA protocol accordingly and was being managed by Endocrinology. The patient was also complaining of abdominal pain while she was in the hospital requiring a GI consultation. The patient underwent EGD that showed evidence of esophagitis and gastritis, was started on Protonix. The patient was found to have a right upper extremity swelling, which her venous Doppler was consistent with a right upper extremity DVT. Hematology was consulted and started on anticoagulation. She was converted to oral Eliquis. While here, the patient continued to have episodes of hypoglycemia and there is one evening where the patient was injecting herself her own insulin from home aside from the insulin that we were giving her, which she would wake up in the morning with severe hypoglycemia. This was reiterated with her on several occasions that she cannot get her own insulin despite us giving her insulin from the facility. It seems like the patient was trying to figure out a way to stay longer in the hospital and we had educated her about not doing that. The patient continued to have low glucose levels even on 06/18/2019, which I was not comfortable discharging the patient at that time. The patient then left against medical advice on 06/18/2019, despite me stating that the patient is not ready for her to be discharged. The patient signed appropriate documentation against medical advice and was educated to please follow up with the appropriate consultants for further management and care. MEDICATIONS: See med reconciliation form, left against medical advice. DISPOSITION: Left AMA. CONDITION: Left AMA. In the event of any worsening symptoms, the patient was advised to come back to the ED for further evaluation. Discharge summary took greater than 35 minutes. Once again, the patient left against medical advice, signed appropriate documentation and left. MD RALEIGH Lehman/KAREEM /[id number]
[2019-06-19] MEDS ORDERED: APIXABAN 5 MG TABLET PO SCH (17:00)
== END 2019-06-18 20:44 | disposition left against medical advice (07) | DRG 638 ==
LOC: ICU 23:40 → MED/SURG3 06-13 20:42
PROVIDERS: ADMIT Internal Medicine; ATTEND Internal Medicine
PROC: 0DB78ZX Excision of Stomach, Pylorus, Via Natural or Artificial Opening Endoscopic, Diagnostic (ICD-10-PCS; 2019-06-14)
PROC: 0DB48ZX Excision of Esophagogastric Junction, Via Natural or Artificial Opening Endoscopic, Diagnostic (ICD-10-PCS; principal; 2019-06-14 18:29)
DX: E11.10 Type 2 diabetes mellitus with ketoacidosis without coma (principal); E87.2 Acidosis; Z91.19 Patient's noncompliance with other medical treatment and regimen; K31.7 Polyp of stomach and duodenum; K20.9 Esophagitis, unspecified; Z86.711 Personal history of pulmonary embolism; Z79.01 Long term (current) use of anticoagulants; F41.9 Anxiety disorder, unspecified; K31.84 Gastroparesis; F17.200 Nicotine dependence, unspecified, uncomplicated; D50.9 Iron deficiency anemia, unspecified; D63.8 Anemia in other chronic diseases classified elsewhere; D51.9 Vitamin B12 deficiency anemia, unspecified; G89.4 Chronic pain syndrome; E86.0 Dehydration; E11.42 Type 2 diabetes mellitus with diabetic polyneuropathy; Z79.4 Long term (current) use of insulin; E11.43 Type 2 diabetes mellitus with diabetic autonomic (poly)neuropathy
CPT/HCPCS: 36415; 36569; 43239; 71045; 74177; 80048; 80053; 80061; 80307; 81025; 82150; 82607; 82728; 82746; 82947; 82948; 83036; 83540; 83630; 83690; 83735; 84439; 84443; 84466; 85025; 85045; 85610; 85651; 85730; 87045; 87177; 88304; 88305; 88312; 93971; 96360; 96361; J1644; J1650; J1756; J1815; J1817; J1940; J2250; J2405; J2550; J2765; J3010; J3410; J3420; J7030; J7042; J7799; Q9967

== ENCOUNTER 2023-04-22 13:58 | Emergency (ER) | payer OTHER ==
[~2023-04-22] VITALS: Ht 175.3 cm; Wt 72.6 kg
[~2023-04-22 13:58] MED LIST changes: +TRESIBA SQ
[2023-04-22 14:11] VITALS: O2SAT 97
[2023-04-22] MEDS ORDERED: ONDANSETRON HCL INJ 2MG/ML 2ML 2 MG/ML VIAL IV STA (14:28)
[2023-04-22] MEDS ORDERED: SODIUM CHLORIDE 0.9% 1000ML 1,000 ML IV STA (14:28)
[2023-04-22 14:42] LABS: BASOPHILS % 0.4 % (0.0-1.0); EOSINOPHILS # (AUTO) 0.1 (0.0-0.4); EOSINOPHILS % 1.6 % (0.0-6.0); HEMATOCRIT 41.1 % (34.2-44.1); HEMOGLOBIN 13.9 g/dL (12.0-16.0); LYMPHOCYTES # (AUTO) 1.8 (1.0-3.2); LYMPHOCYTES % 26.9 % (18.0-39.1); MEAN CORPUSCULAR HEMOGLOBIN 29.9 pg (28-32); MEAN CORPUSCULAR HGB CONC 33.8 g/dL (31-35); MEAN CORPUSCULAR VOLUME 88.4 fL (81-99); MONOCYTES # (AUTO) 0.5 (0.2-0.8); MONOCYTES % 7.2 % (4.4-11.3); NEUTROPHILS # (AUTO) 4.3 (2.1-6.9); NEUTROPHILS % 63.6 % (38.7-80.0); PLATELET COUNT 309 x10e3/uL (140-360); RED BLOOD COUNT 4.65 x10e6/uL (3.6-5.1); RED CELL DISTRIBUTION WIDTH 12.6 % (11.7-14.4)
[2023-04-22 14:44] LABS: CLARITY,URINE SL CLOUDY (CLEAR); COLOR,URINE YELLOW (YELLOW); KETONES,URINE TRACE (NEGATIVE); LEUKOCYTE ESTERASE ,URINE SMALL (NEGATIVE); NITRITE,URINE NEGATIVE (NEGATIVE); PROTEIN,URINE DIPSTICK 2+ (NEGATIVE); URINE UROBILINOGEN 0.2 mg/dL (0.2 - 1)
[2023-04-22 14:59] LABS: ALBUMIN 3.9 g/dL (3.5-5.0); ALBUMIN/GLOBULIN RATIO 0.9 (0.8-2.0); ANION GAP 17.7 mmol/L (8-16); CALCIUM 9.5 mg/dL (8.4-10.2); CREATININE, SERUM 2.74 mg/dL (0.57-1.11); POTASSIUM 3.7 mmol/L (3.5-5.1)
[2023-04-22 15:04] LABS: RBC,URINE 0-5 /HPF (0-5)
[2023-04-22 15:05] LABS: BACTERIA,URINE MODERATE /HPF; EPITHELIAL CELLS,URINE MANY /LPF
[2023-04-22 15:06] LABS: AMORPHOUS SEDIMENT,URINE MODERATE (FEW)
[2023-04-22 15:07] LABS: RENAL EPITHELIAL CELLS,URINE FEW
[2023-04-22] MEDS ORDERED: Morphine 4mg INJECTION 4 MG/ML INJ IV ONE (15:30)
[2023-04-22] MEDS ORDERED: FENTANYL CITRATE/PF 100MCG/2 ML INJ IV ONE (15:30)
[2023-04-22] MEDS ORDERED: DICYCLOMINE HCL 20 MG/2 ML VIAL IM ONE (17:15)
[2023-04-22] MEDS ORDERED: DICYCLOMINE HCL20 MG PO ×2 (17:22→17:42)
[2023-04-22] MEDS ORDERED: PROMETHAZINE HC25 M1 PO (17:42)
== END 2023-04-22 17:35 | disposition home or self-care (01) ==
LOC: ER 14:03
DX: R11.2 Nausea with vomiting, unspecified (principal); K52.9 Noninfective gastroenteritis and colitis, unspecified; R10.84 Generalized abdominal pain; E11.65 Type 2 diabetes mellitus with hyperglycemia; F41.9 Anxiety disorder, unspecified
CPT/HCPCS: 36415; 74176; 80053; 81001; 82550; 83690; 84484; 85025; 99284; J0500; J2405; J3010; J7030

== ENCOUNTER 2023-05-12 18:49 | Emergency (ER) | payer OTHER ==
[~2023-05-12] VITALS: Ht 175.3 cm; Wt 72.6 kg
[2023-05-12] MEDS ORDERED: SUCRALFATE 1 GM TAB PO STA (19:29)
[2023-05-12] MEDS ORDERED: HALOPERIDOL LACTATE 5 MG/ML VIAL IV STA (19:29)
[2023-05-12] MEDS ORDERED: FAMOTIDINE 20 MG/2 ML VIAL IV STA (19:29)
[2023-05-12] MEDS ORDERED: ONDANSETRON HCL INJ 2MG/ML 2ML 2 MG/ML VIAL IV STA (19:29)
[2023-05-12] MEDS ORDERED: SODIUM CHLORIDE 0.9% 1000ML 1,000 ML IV ONE ×2 (19:30→20:45)
[2023-05-12 20:07] LABS: BASOPHILS % 0.5 % (0.0-1.0); EOSINOPHILS # (AUTO) 0.1 (0.0-0.4); EOSINOPHILS % 1.7 % (0.0-6.0); HEMATOCRIT 38.2 % (34.2-44.1); HEMOGLOBIN 12.7 g/dL (12.0-16.0); LYMPHOCYTES % 30.4 % (18.0-39.1); MEAN CORPUSCULAR HEMOGLOBIN 29.3 pg (28-32); MEAN CORPUSCULAR HGB CONC 33.2 g/dL (31-35); MEAN CORPUSCULAR VOLUME 88.2 fL (81-99); MONOCYTES # (AUTO) 0.6 (0.2-0.8); MONOCYTES % 8.6 % (4.4-11.3); NEUTROPHILS # (AUTO) 3.8 (2.1-6.9); NEUTROPHILS % 58.6 % (38.7-80.0); PLATELET COUNT 243 x10e3/uL (140-360); RED BLOOD COUNT 4.33 x10e6/uL (3.6-5.1); RED CELL DISTRIBUTION WIDTH 12.8 % (11.7-14.4)
[2023-05-12 20:27] LABS: ALANINE AMINOTRANSFERASE 35 IU/L (0-55); ALBUMIN 3.8 g/dL (3.5-5.0); ALKALINE PHOSPHATASE 132 IU/L (40-150); ANION GAP 18.7 mmol/L (8-16); BLOOD UREA NITROGEN 13 mg/dL (7-26); BUN/CREATININE RATIO 8 (6-25); CALCIUM 9.4 mg/dL (8.4-10.2); CARBON DIOXIDE 24 mmol/L (22-29); CHLORIDE 104 mmol/L (98-107); CREATININE, SERUM 1.58 mg/dL (0.57-1.11); GLUCOSE 163 mg/dL (74-118); LIPASE 5 U/L (8-78); POTASSIUM 3.7 mmol/L (3.5-5.1); SODIUM 143 mmol/L (136-145)
[2023-05-12] MEDS ORDERED: IOPAMIDOL 370 MG/ML 100 ML INFUS..BTL INJ ONE (20:35)
[2023-05-12 22:39] LABS: CLARITY,URINE CLOUDY (CLEAR); COLOR,URINE YELLOW (YELLOW); KETONES,URINE TRACE (NEGATIVE); LEUKOCYTE ESTERASE ,URINE MODERATE (NEGATIVE); NITRITE,URINE POSITIVE (NEGATIVE); PROTEIN,URINE DIPSTICK 2+ (NEGATIVE); URINE UROBILINOGEN 0.2 mg/dL (0.2 - 1)
[2023-05-12 22:41] LABS: AMPHETAMINES SCREEN,URINE NEGATIVE (NEGATIVE); BACTERIA,URINE MANY /HPF; BENZODIAZEPINES SCREEN,URINE NEGATIVE (NEGATIVE); EPITHELIAL CELLS,URINE RARE /LPF; PHENCYCLIDINE SCREEN,URINE NEGATIVE (NEGATIVE); WBC,URINE (MAN) >50 /HPF (0-5)
[2023-05-12] MEDS ORDERED: CEFTRIAXONE 1 GM VIAL IV ONE (23:00)
[2023-05-12] MEDS ORDERED: CEFUROXIME500 MG PO (23:03)
[2023-05-12 23:16] VITALS: BP 138/92; PULSE 70; RESP 17; TEMP 98.4; O2SAT 99
== END 2023-05-12 23:30 | disposition home or self-care (01) ==
LOC: ER 19:15
DX: N39.0 Urinary tract infection, site not specified (principal); K31.84 Gastroparesis; E10.43 Type 1 diabetes mellitus with diabetic autonomic (poly)neuropathy; K90.0 Celiac disease; Z90.49 Acquired absence of other specified parts of digestive tract; Z88.5 Allergy status to narcotic agent; Z88.0 Allergy status to penicillin; Z79.4 Long term (current) use of insulin; Z79.899 Other long term (current) drug therapy
CPT/HCPCS: 36415; 74177; 80053; 80307; 81001; 83690; 84484; 84702; 85025; 87086; 87186; 93005; 99284; J0696; J1630; J2405; J7030; Q9967